=== PATIENT | female | born 1955 | race Caucasian/White ===

== ENCOUNTER 2016-05-17 12:07 | Emergency (ER) | payer OTHER ==
[~2016-05-17] VITALS: Ht 152.4 cm; Wt 54.4 kg
--- NOTE | 2016-05-17 12:26 | ED CARDIAC/CP/PALPITATIONS ---
History of Present Illness General Chief Complaint: Chest Pain Stated Complaint: "TO BE EVAL FOR CHEST PAIN" Source: patient, old records Exam Limitations: no limitations Allergies Coded Allergies: NO KNOWN ALLERGIES (09/14/10) Reconcile Medications Clonazepam 1 MG TABLET 1 TAB PO BIDP PRN ANXIETY (Reported) Fluticasone Propionate 50 MCG/ACTUATION SPRAY.SUSP 2 SPRAY NASB DAILY ALLERGIES (Reported) Methylphenidate HCl 20 MG TABLET 1 TAB PO BID UNKNOWN (Reported) Metoprolol Succinate 25 MG TAB 1 TAB PO QPM HEART (Reported) Montelukast Sodium 10 MG TABLET 1 TAB PO QPM ALLERGIES (Reported) Sitagliptin Phos/Metformin HCl (Janumet XR 50-1,000 MG Tablet) 50 MG-1,000 MG TBMP.24HR 1 TAB PO QPM DIABETES (Reported) Sitagliptin Phosphate (Januvia) 100 MG TABLET 1 TAB PO QPM DIABETES (Reported ) Triage Note: PT STATES SHE HAS BEEN HAVING CHEST PAIN ON AND OFF FOR THE PAST 3 DAYS. PT STATES SHE HAS TWO STENTS PLACED BY DR. LOUISE AT [place]. PT REPORTS FEELING PALPATATIONS. PT STATES SHE DID GET SOB AND FELT DIAPHORETIC DURING HER EPISODES. PT DENIES CHEST PAIN AT THIS TIME. Triage Nurses Notes Reviewed? yes Onset: Abrupt Duration: day(s): (3), constant Timing: recent history Quality/Severity: moderate, aching Location: substernal Radiation: no radiation Activities at Onset: none Nitro Today/Relief: 0.4 mg x 1 Aspirin Today: 81 mg x 1 Associated Symptoms: denies HPI: 61-year-old female history of coronary artery disease requiring stents 9 years ago presents emergency room sent in by her professional engineer for evaluation complaining of a dull aching chest pain described as a pressure nonradiating for the past 3 days associated with exertional dyspnea. She denies cough fever chills hemoptysis. Patient reports intermittent palpitations for which he took 1 Klonopin without improvement. No recent immobility or recent travel fever no chills no leg swelling. Her professional engineer is Dr. amador out of [place]. pt does not smoke. There are no modifying factors or associated symptoms otherwise (ABE VILLANUEVA,GADIEL) Vital Signs & Intake/Output Vital Signs & Intake/Output Vital Signs Date Time Temp Pulse Resp B/P Pulse O2 O2 Flow FiO2 Ox Delivery Rate 05/17 1755 96.7 80 16 130/67 97 Room Air 05/17 1544 97.1 76 16 140/60 99 Room Air 05/17 1418 96 05/17 1255 99 05/17 1224 96.3 82 16 145/77 98 Room Air Past History Travel History Traveled to [place] past 21 day No Medical History Any Pertinent Medical History? see below for history Cardiovascular: CAD, STENTS 1995 Pneumonia Vaccine: 11/22/03 Influenza Vaccine: 11/22/03 Surgical History Surgical History: non-contributory Psychosocial History Who do you live with Family Services at Home None What is your primary language Slovenian Tobacco Use: Quit >30 days ago ETOH Use: denies use Illicit Drug Use: denies illicit drug use Family History Hx Contributory? No (GADIEL SUN) Review of Systems Review of Systems Constitutional: Reports: see HPI. All Other Systems: Reviewed and Negative Comments Review of systems: See HPI, All other systems negative. Constitutional, no chills no fever, no malaise HEENT: No visual changes no sore throat no congestion Cardiovascular: chest pain , palpitation Skin, no rashes, no change in skin Respiratory:dyspnea no cough no sputum no hemoptysis GI: No nausea no vomiting, no diarrhea, no bloating/constipation : No dysuria No hematuria, Muscle skeletal: No joint pain, no back pain, no neck pain, Neurologic: No numbness , no headache Psych: No stress Heme/endocrine: No bruising no bleeding Immunology: No lymphadenopathy (GADIEL SUN) Physical Exam Physical Exam General Appearance: well developed/nourished, alert, awake Cardiovascular: regular rate/rhythm Comments: Well-developed well-nourished person in no acute distress HEENT: Normal EENT exam; PERRL, EOMI, HEAD is atraumatic. moist mucous membranes. Neck: Supple, normal range of motion Back: Nontender, no CVA tenderness. Full range of motion Cardiovascular: Regular rate and rhythms no murmurs rubs Respiratory: Chest nontender.There were no bony deformities, no asymmetry. No respiratory distress. Patient speaking in full complete sentences. Breath sounds clear to auscultation bilaterally: NO W/R/R Abdomen: Soft, nontender nondistended, no appreciable organomegaly. Normal bowel sounds. No rebound/guarding Extremity: No edema, full range of motion of extremities Neuro: Alert oriented x3, motor sensory normal, There were no obvious focal neurologic abnormalities. Skin: No appreciable rash on exposed skin, skin is warm and dry. Psych: Mood and affect is normal, memory and judgment is normal. Core Measures ACS in differential dx? Yes ASA ordered for poss ACS? pt took today Severe Sepsis Present: No Septic Shock Present: No (GADIEL SUN) Progress Differential Diagnosis: AMI, atrial fibrillation, CHF/pulm edema, costochondritis, hypovolemia, musculoskeletal pain, myocarditis, pericarditis, pneumonia, pneumothorax, PSVT, pulmonary embolism, PVCs/PACs, unstable angina Diagnostic Imaging: Viewed by Me: Radiology Read. Discussed w/RAD: Radiology Read. Radiology Impression: PATIENT: ELIZABETH CLARKE PRESENT AGE: 61 PATIENT ACCOUNT NO: [id number] : 53 LOCATION: [facility] ORDERING PHYSICIAN: GADIEL VILLANUEVA SERVICE DATE: 05/17/16-1235 EXAM TYPE: RAD - XRY- PORTABLE CHEST XRAY EXAMINATION: XR PORTABLE CHEST CLINICAL INFORMATION: Chest pain and dyspnea COMPARISON: 02/19/2014 TECHNIQUE: Portable AP view of the chest was obtained. FINDINGS: Cardiac leads overlie the chest. The lungs are well expanded. There is no focal consolidation, edema, or effusion. No pneumothorax. The cardiomediastinal silhouette is within normal limits. Aortic calcifications noted. No acute osseous abnormality. IMPRESSION: Clear lungs. DICTATED BY: SEGUN SNEED MD DATE/TIME DICTATED:05/17/161310 WORKERS' COMPENSATION HEARINGS OFFICER: TROY DATE/TIME TRANSCRIBED:05/17/161310 CONFIDENTIAL, DO NOT COPY WITHOUT APPROPRIATE AUTHORIZATION. <Electronically signed in Other Vendor System> SIGNED BY: SEGUN SNEED MD 05/17/16 1311 Initial ED EKG: NORMAL SINUS AT 70, NO ACUTE st SEGMENT CHANGES NORMAL AXIS Prior EKG: unchanged (12/2006) Repeat EKG: unchanged Rhythm Strip: normal sinus rhythm (70s) (GADIEL SUN) Plan of Care: Orders Procedure Date/time Status Regular Diet 05/17 D Active TROPONIN LEVEL 05/17 1710 Complete EKG 05/17 1710 Active TROPONIN LEVEL 05/17 1225 Complete PROTHROMBIN TIME 05/17 1225 Complete MAGNESIUM 05/17 1225 Complete COMPREHENSIVE METABOLIC PANEL 05/17 1225 Complete CBC WITHOUT DIFFERENTIAL 05/17 1225 Complete EKG 05/17 1209 Active Laboratory Tests 05/17/16 1705: Troponin I < 0.01 05/17/16 1317: Anion Gap 9, Estimated GFR > 60, BUN/Creatinine Ratio 24.0, Glucose 198 H, Calcium 9.8, Magnesium 1.9, Total Bilirubin 0.8, AST 18, ALT 30, Alkaline Phosphatase 81, Troponin I < 0.01, Total Protein 7.0, Albumin 4.3, Globulin 2.7, Albumin/Globulin Ratio 1.6, PT 12.4, INR 1.18 05/17/16 1241: CBC w Diff NO MAN DIFF REQ, RBC 4.92, MCV 86.6, MCH 28.7, RDW 13.9, MPV 9.0, Gran % 70.1, Lymphocytes % 21.9, Monocytes % 4.5, Eosinophils % 2.8, Basophils % 0.7, Absolute Granulocytes 6.0, Absolute Lymphocytes 1.9, Absolute Monocytes 0.4 , Absolute Eosinophils 0.2, Absolute Basophils 0.1, PUBS MCHC 33.2 Labs ordered old records reviewed patient medicated with nitroglycerin without improvement of her symptoms remains normal sinus on the monitor labs ordered case discussed with Dr. Gamez 05/17/2016 2:13:53 PM discussed the patient at length all her lab results need for repeat troponin and EKG at 1710, I discussed the case with her professional engineer Dr. amador who advised pt has a long history of anxiety compoenent, noncompliant with follow up in past, and feels comfortable with plan for 2 set- if negative pt can be discharged safely home with follow up with him Repeat evaluation patient is resting comfortable normal sinus on the monitor 05/17/2016 5:32:18 PM discussed with patient and her EKG the troponin I discussed with the patient at length all of their results. I had an extensive conversation regarding need for close follow up with their professional engineer as well as her primary care physician this week as well as return precautions. I answered all of their questions, they feel comfortable with the plan and follow- up care. I discussed the medications that they will receive with the patient. I gave them signs and symptoms that could indicate an adverse reaction. I have advised them to limit their activities until they can see how they respond to the medication. (GADIEL SUN) Departure Departure Time of Disposition: 1757 Disposition: HOME OR SELF CARE Condition: Stable Clinical Impression Primary Impression: Atypical chest pain Referrals: BLANCA VILLANUEVA,GRAZYNA THOMPSON (PCP/Family) Additional Instructions: Follow-up with your professional engineer as discussed tomorrow as well as your primary care physician. Return anytime sooner with any concerns. Departure Forms: Customer Survey General Discharge Information (GADIEL SUN) PA/SEAM STEAMER Co-Sign Statement Statement: ED Attending supervision documentation- [X] I saw and evaluated the patient. I have also reviewed all the pertinent lab results and diagnostic results. I agree with the findings and the plan of care as documented in the PA's/SEAM STEAMER's documentation. [] I have reviewed the ED Record and agree with the PA's/SEAM STEAMER's documentation. [] Additions or exceptions (if any) to the PAs/SEAM STEAMER's note and plan are summarized below: [] (NURA GUTIERREZ,RAMON Krause) Critical Care Note Critical Care Note Critical Care Time: non-applicable (GADIEL SUN)
[2016-05-17 12:48] LABS: ABSOLUTE BASOPHIL COUNT 0.1 /CUMM (0.0-0.2); ABSOLUTE EOSINOPHIL COUNT 0.2 /CUMM (0.0-0.7); ABSOLUTE LYMPH COUNT 1.9 /CUMM (1.2-3.4); ABSOLUTE MONOCYTE COUNT 0.4 /CUMM (0.10-0.60); BASOPHIL % 0.7 % (0.0-2.0); EOSINOPHIL % 2.8 % (0-5); GRANULOCYTE % 70.1 % (42.2-75.2); HEMATOCRIT 42.6 % (37-47); MEAN CORPUSCULAR HGB 28.7 PG (27.0-31.0); MEAN CORPUSCULAR HGB CONC 33.2 G/DL (33.0-37.0); MEAN CORPUSCULAR VOLUME 86.6 FL (81.0-99.0); PLATELET COUNT 274 /CUMM (130-400); RBC DISTRIBUTION WIDTH 13.9 % (11.5-14.5); RED BLOOD CELL CT 4.92 /CUMM (4.20-5.40); WHITE BLOOD CELL COUNT 8.6 /CUMM (4.8-10.8)
--- NOTE | 2016-05-17 13:15 | RADIOLOGY REPORT ---
EXAMINATION: XR PORTABLE CHEST CLINICAL INFORMATION: Chest pain and dyspnea COMPARISON: 02/19/2014 TECHNIQUE: Portable AP view of the chest was obtained. FINDINGS: Cardiac leads overlie the chest. The lungs are well expanded. There is no focal consolidation, edema, or effusion. No pneumothorax. The cardiomediastinal silhouette is within normal limits. Aortic calcifications noted. No acute osseous abnormality. IMPRESSION: Clear lungs.
[2016-05-17 13:36] LABS: PT 12.4 SEC (9.4-12.5)
[2016-05-17] MEDS ORDERED: METHYLPHENIDATE20 M4 PO (14:04)
[2016-05-17] MEDS ORDERED: MONTELUKAST SOD10 M1 PO (14:04)
[2016-05-17] MEDS ORDERED: JANUVIA100 M1 PO (14:05)
[2016-05-17] MEDS ORDERED: METOPROLOL SUCC25 M1 PO (14:05)
[2016-05-17] MEDS ORDERED: CLONAZEPAM1 M2 PO (14:05)
[2016-05-17] MEDS ORDERED: JANUMET XR 50-1 EAC1 PO (14:05)
[2016-05-17] MEDS ORDERED: FLUTICASONE PRO16 GM NASB (14:06)
[2016-05-17 17:55] VITALS: BP 130/67
== END 2016-05-17 17:55 ==
LOC: ERH 12:07
PROVIDERS: Physician Assistant Medical
DX: R07.89 Other chest pain (principal)
CPT/HCPCS: 1263; 93005; 93010; J3490

== ENCOUNTER 2016-08-13 12:58 | Inpatient (IN) | payer OTHER ==
[~2016-08-13] VITALS: Ht 152.4 cm; Wt 55.8 kg
[~2016-08-13 12:58] MED LIST: CLONAZEPAM1 M2 PO; FLUTICASONE PRO16 GM NASB; JANUMET XR 50-1 EAC1 PO; JANUVIA100 M1 PO; METHYLPHENIDATE20 M4 PO; METOPROLOL SUCC25 M1 PO; MONTELUKAST SOD10 M1 PO
--- NOTE | 2016-08-13 13:05 | NUR ---
PT TO ED FOR C/C OF HEART PALPITATIONS AND SOB SINCE LAST NIGHT. PT ALSO REPORTS DR. RADHA LEUNG "WANTS ME TO BE ADMITTED TO INPATIENT PSYCH". PT REPORTS +SI THOUGHTS. DENIES HI. +DEPRESSION. TAKEN TO EKG TAMERA.
--- NOTE | 2016-08-13 13:14 | NUR ---
TRIAGE NOTE ACKNOWLEDGED AND RN CARE ASSUMED PT BOUGHT TO ROOM # 8 FOR EVALUATION SECURITY CALLED PER PROTOCOL FOR WANDING. SPOUSE WILL ASSUME RESPONSIBILITY FOR ALL PT BELONGINGS AND VALUABLES PT WAITING TO BE EVALUATED.
--- NOTE | 2016-08-13 13:31 | NUR ---
PT EVALUATED BY DR KELLY
--- NOTE | 2016-08-13 13:36 | ED PSYCHIATRIC COMPLAINT ---
History of Present Illness General Chief Complaint: Palpitations Stated Complaint: SOB,PALP Source: patient, family Exam Limitations: no limitations Vital Signs & Intake/Output Vital Signs & Intake/Output Vital Signs Date Time Temp Pulse Resp B/P B/P Pulse O2 O2 Flow FiO2 Mean Ox Delivery Rate 08/13 2221 97.2 65 17 115/64 96 Room Air 08/13 2000 97.3 72 16 122/58 96 Room Air 08/13 1608 97.5 82 18 123/55 96 08/13 1421 98 Room Air 08/13 1304 98.0 120 15 145/82 98 Room Air Room Air Allergies Coded Allergies: NO KNOWN ALLERGIES (09/14/10) Reconcile Medications Amlodipine Besylate 2.5 MG TABLET 1 TAB PO DAILY HIGH BLOOD PRESSURE ( Reported) Aspirin (Aspirin*) 81 MG TAB.CHEW 1 TAB PO DAILY HEART HEALTH (Reported) Bismuth Subsalicylate (Kaopectate) 262 MG/15 ML ORAL.SUSP 30 ML PO DAILY NEEDED HEARTBURN (Reported) Clonazepam 1 MG TABLET 1 TAB PO Q6-PRN PRN ANXIETY (Reported) Clopidogrel Bisulfate (Clopidogrel) 75 MG TABLET 1 TAB PO DAILY HEART HEALTH (Reported) Docusate Sodium (Colace) 100 MG CAPSULE 1 CAP PO DAILY NEEDED CONSTIPATION (Reported) Fluticasone Propionate 50 MCG/ACTUATION SPRAY.SUSP 2 SPRAY NASB DAILY ALLERGIES (Reported) Loratadine (Claritin) 10 MG TABLET 1 TAB PO DAILY ALLERGIES (Reported) Metformin HCl 500 MG TABLET 2 TAB PO D DIABETES (Reported) Methylphenidate HCl 20 MG TABLET 1 TAB PO BID UNKNOWN (Reported) Metoprolol Succinate 25 MG TAB 0.5 TAB PO QPM HEART (Reported) Montelukast Sodium 10 MG TABLET 1 TAB PO QPM ALLERGIES (Reported) Nitroglycerin 0.4 MG TAB.SUBL 1 TAB SL AD CHEST PAIN (Reported) 1st sign of attack; may repeat every 5 minutes until relief; if pain persists after 3 tablets in 15 minutes, prompt medical att Ranolazine (Ranexa) 500 MG TAB.ER.12H 1 TAB PO BID CHEST PAIN (Reported) Rosuvastatin Calcium (Crestor) 40 MG TABLET 1 TAB PO DAILY HIGH CHOLESTROL ( Reported) Sitagliptin Phosphate (Januvia) 100 MG TABLET 1 TAB PO QPM DIABETES (Reported ) Vortioxetine Hydrobromide (Trintellix) 5 MG TABLET 1 TAB PO D DEPRESSION ( Reported) PT TO GO UP TO 10 MG ON Tuesday08/17/16 Triage Note: PT TO ED FOR C/C OF HEART PALPITATIONS AND SOB SINCE LAST NIGHT. PT ALSO REPORTS DR. RADHA LEUNG "WANTS ME TO BE ADMITTED TO INPATIENT PSYCH". PT REPORTS +SI THOUGHTS. DENIES HI. +DEPRESSION. TAKEN TO EKG ALCOVE. Triage Nurses Notes Reviewed? yes Onset: Abrupt Duration: 2 months Timing: recent history Severity: moderate, severe Associated Symptoms: anxiety, suicidal ideation HPI: 61 year old female with history of anxiety adn depression presents to the ER from home with her for chief complaint of anxiety. Sugey reports she was sent in for admision by her psychiatrist. She reports weight loss, difficulty sleeping, reports feeling unsafe at home. She states since her cardiac catheterization 2 months ago and stent placement that her anxiety has become much worse. Denies chest pain or shortness of breath but states that she did feel her heart racing. She reports 40 lb weight loss in the last 2 months. She reports feeling suicidal but states she does not have a plan. Past History Travel History Traveled to [place] past 21 day No Medical History Any Pertinent Medical History? see below for history Neurological: NONE EENT: NONE Cardiovascular: CAD, hypertension, hyperlipidemia, STENTS 1995 Respiratory: NONE Gastrointestinal: NONE Hepatic: NONE Renal: NONE Musculoskeletal: NONE Psychiatric: anxiety, depression Endocrine: NONE Blood Disorders: NONE Cancer(s): NONE HUMANITIES PROFESSOR/Reproductive: NONE Surgical History Surgical History: non-contributory Psychosocial History Who do you live with Family Services at Home None What is your primary language Occitan Tobacco Use: Never used ETOH Use: denies use Illicit Drug Use: denies illicit drug use Family History Hx Contributory? No Review of Systems Review of Systems Constitutional: Denies: chills, diaphoresis. EENTM: Reports: no symptoms. Respiratory: Denies: cough, short of breath, sputum production. Cardiovascular: Reports: palpitations. Denies: chest pain, peripheral edema, syncope. GI: Denies: abdominal pain. Genitourinary: Reports: no symptoms. Musculoskeletal: Reports: no symptoms. Skin: Reports: no symptoms. Neurological/Psychological: Reports: anxiety, depressed, emotional problems. Hematologic/Endocrine: Denies: bruising, bleeding. Immunologic/Allergic: Reports: no symptoms. All Other Systems: Reviewed and Negative Physical Exam Physical Exam General Appearance: well developed/nourished, alert, awake, anxious, mild distress Head: atraumatic Eyes: Bilateral: PERRL, EOMI. Ears, Nose, Throat: normal pharynx, normal ENT inspection, hearing grossly normal Neck: normal inspection, supple Respiratory: normal breath sounds Cardiovascular: regular rate/rhythm Gastrointestinal: soft, non-tender Extremities: normal range of motion Neurological/Psychiatric: awake, alert, anxious Appearance/Memory/Insight: appropriate appearance, impaired insight Behavoir/Eye Contact/Speech: uncooperative, increased rate of speech, good eye contact Thoughts/Hallucinations: no apparent hallucination Skin: intact, normal color, warm/dry SAD PERSONS SAD PERSONS Response Value Age <19 or >45 years? yes 1 Depression/Hopelessness? yes 2 Rational Thinking Loss? yes 2 Social Support? has support 0 Stated Future Intent? yes 2 Total 7 SAD PERSONS Done? yes Progress Differential Diagnosis: ANXIETY, DEPRESSION, SUICIDAL IDEATION Plan of Care: Orders Procedure Date/time Status Regular Diet 08/14 B Active Patient Data - inpatient psych 08/13 2041 Active Admit to inpatient psych 08/13 2041 Active Admit to inpatient psych 08/13 1834 Active Intake & Output 08/13 1421 Active URINE DRUGS OF ABUSE 08/13 1338 Complete THYROID STIMULATING HORMONE 08/13 1338 Complete TROPONIN LEVEL 08/13 1338 Complete FREE T4 08/13 1338 Complete ETHANOL 08/13 1338 Complete COMPREHENSIVE METABOLIC PANEL 08/13 1338 Complete CBC WITHOUT DIFFERENTIAL 08/13 1338 Complete ED CRISIS PSYCH CONSULT 08/13 1338 Active EKG 08/13 1300 Active Vital Signs 08/13 UNK Active Nursing Misc 08/13 UNK Active Activity/Ambulation 08/13 UNK Active Current Medications Sig/Genaro Start time Last Medication Dose Stop Time Status Admin Atorvastatin Calcium 40 MG 1700 08/14 1700 AC (Lipitor) Amlodipine Besylate 2.5 MG DAILY 08/14 1000 AC (Norvasc) Aspirin 81 MG DAILY 08/14 1000 AC (Aspirin) Clopidogrel Bisulfate 75 MG DAILY 08/14 1000 AC (Plavix) Fluticasone 2 SPRAY DAILY 08/14 1000 AC Propionate (Flonase) Loratadine 10 MG DAILY 08/14 1000 AC (Claritin) Metformin HCl 1,000 MG DAILY 08/14 1000 AC (Glucophage) Non-Formulary 5 UNIT DAILY 08/14 1000 UNVr Medication (NON FORMULARY) Methylphenidate HCl 20 MG 0800 & 1300 08/14 0800 AC (Ritalin) Metoprolol Tartrate 12.5 MG QPM 08/13 2199 AC (Lopressor) Montelukast Sodium 10 MG QPM 08/13 220 AC (Singulair) Ranolazine 500 MG BID 08/13 2199 AC (Ranexa) Sitagliptin Phosphate 100 MG QPM 08/13 2199 AC (JANUVIA) Nitroglycerin 0.4 MG Q5M PRN 08/13 2099 AC (Nitrostat) Bismuth Subsalicylate 30 ML DAILY NEEDED 08/13 2044 AC (Pepto Bismol Susp) Clonazepam 1 MG Q6-PRN PRN 08/13 2044 AC (Klonopin 1MG Tab) 08/21 2043 Docusate Sodium 100 MG DAILY NEEDED 08/13 2044 AC (Colace) Laboratory Tests 08/13/16 1415: Urine Opiates Screen < 100.00, Methadone Screen < 40, Barbiturate Screen < 60, Ur Phencyclidine Scrn < 6.00, Amphetamines Screen < 100, U Benzodiazepines Scrn 215 H, Urine Cocaine Screen < 50, Urine Cannabis Screen 9.40 08/13/16 1405: Anion Gap 12, Estimated GFR > 60, BUN/Creatinine Ratio 25.7 H, Glucose 231 H, Calcium 9.7, Total Bilirubin 1.0, AST 24, ALT 30, Alkaline Phosphatase 63, Troponin I < 0.01, Total Protein 7.0, Albumin 4.3, Globulin 2.7, Albumin/ Globulin Ratio 1.6, TSH 0.824, Free T4 0.97, CBC w Diff NO MAN DIFF REQ, RBC 4.47, MCV 84.7, MCH 28.8, RDW 13.6, MPV 8.3, Gran % 64.9, Lymphocytes % 25.5, Monocytes % 7.5, Eosinophils % 1.7, Basophils % 0.4, Absolute Granulocytes 3.3, Absolute Lymphocytes 1.3, Absolute Monocytes 0.4, Absolute Eosinophils 0.1, Absolute Basophils 0, PUBS MCHC 34.0, Serum Alcohol < 10.0 labs, ekg, utox ordered. odt zofran. ns, iv reglan ordered. 17:48 patient seen and evaluated by crisis - will be admitted to [facility]. (LETICIA GUTIERREZ,REMIGIO) Departure Departure Time of Disposition: 1747 Disposition: STILL A PATIENT Condition: Stable Clinical Impression Primary Impression: Bipolar disorder, unspecified Referrals: GRAZYNA DENNIS (PCP/Family) Departure Forms: Customer Survey General Discharge Information Psych Admission Note Psychiatric Admission: I have seen and evaluated ELIZABETH CLARKE. I have also reviewed all the pertinent lab results and diagnostic results. ELIZABETH CLARKE will be admitted to our inpatient Psychiatric unit for treatment and care.
--- NOTE | 2016-08-13 14:06 | NUR ---
BLDS DRAWN AND SENT
[2016-08-13 14:12] LABS: ABSOLUTE BASOPHIL COUNT 0 /CUMM (0.0-0.2); ABSOLUTE EOSINOPHIL COUNT 0.1 /CUMM (0.0-0.7); ABSOLUTE GRANULOCYTE CT 3.3 /CUMM (1.4-6.5); ABSOLUTE LYMPH COUNT 1.3 /CUMM (1.2-3.4); ABSOLUTE MONOCYTE COUNT 0.4 /CUMM (0.10-0.60); BASOPHIL % 0.4 % (0.0-2.0); EOSINOPHIL % 1.7 % (0-5); GRANULOCYTE % 64.9 % (42.2-75.2); HEMATOCRIT 37.8 % (37-47); MEAN CORPUSCULAR HGB 28.8 PG (27.0-31.0); MEAN CORPUSCULAR VOLUME 84.7 FL (81.0-99.0); MEAN PLATELET VOLUME 8.3 FL (7.4-10.4); PLATELET COUNT 260 /CUMM (130-400); RBC DISTRIBUTION WIDTH 13.6 % (11.5-14.5); RED BLOOD CELL CT 4.47 /CUMM (4.20-5.40)
--- NOTE | 2016-08-13 14:20 | NUR ---
PT C/O NAUSEA. PT MEDICATED WITH 4 MG ZOFRAN ODT FOR NAUSEA.
[2016-08-13] MEDS ORDERED: RANEXA500 M1 PO (15:24)
[2016-08-13] MEDS ORDERED: CRESTOR40 M2 PO (15:24)
[2016-08-13] MEDS ORDERED: AMLODIPINE BES2.5 M1 PO (15:25)
[2016-08-13] MEDS ORDERED: ASPIRIN81 M4 PO (15:26)
[2016-08-13] MEDS ORDERED: KAOPECTATE262 MG/11 PO (15:29)
[2016-08-13] MEDS ORDERED: CLOPIDOGREL75 M1 PO (15:30)
[2016-08-13] MEDS ORDERED: COLACE100 M1 PO (15:31)
[2016-08-13] MEDS ORDERED: CLARITIN10 M1 PO (15:32)
[2016-08-13] MEDS ORDERED: METFORMIN HCL500 M3 PO (15:34)
[2016-08-13] MEDS ORDERED: NITROGLYCERIN0.4 M1 SL (15:36)
[2016-08-13] MEDS ORDERED: TRINTELLIX5 MG PO (15:41)
--- NOTE | 2016-08-13 17:32 | NUR ---
PT CONTINUES TO REPORT NAUSEA. 22 G PARDEEP PLACED IN LW IV OF N/S STARTED W/O X ONE LITER PT MEDICATED WITH 10 MG COMPAZINE IV IN 50 ML N/S TO INFUSE OVER 30 MINUTES.
--- NOTE | 2016-08-13 17:45 | ED PSYCH CRISIS CONSULTATION ---
Crisis Consult Basic Assessment Date of Consult: 08/13/16 Responsible Person/Accompanied By: - Adelfo Marquez [phone]. Insurance Authorization: Insurance #1: Insurance name: [employer] Phone number: Policy number: [id number] Group number: Authorization number: ED Provider: Patient's ED Provider: LETICIA GUTIERREZ,REMIGIO Primary Care Physician: Patient's PCP: GRAZYNA DENNIS PCP's Current Psychiatrist: Dr. Gambino Chief Complaint: Psychiatric Related Complaint Patient's Quote: " I don't feel safe at home." Present Illness: The patient is a 61 year old, , female, presenting to the ED with worsening depression and suicidal ideations. The patient presents with depressed mood and congruent affect. The patient reports that she has struggled with depression, for many years and has been seeing her psychiatrist (Dr. Gambino ), for the past 10 years. She does report one prior hospitalization, on [facility] in 2004. She states that she has anxiety and Bipolar Disorder and notes that she was managing well, until about 2 months ago, when she required two cardiac stents. She notes that since having the cardiac issues her depression has been increasing. She has been feeling helpless, hopeless, depressed, anxious, with decreased energy, decreased motivation, decreased appetite (reports loss of 40lbs), and sleep disturbances. She states that her medical issues are her primary stressor and that she is very distressed by having issues with her heart. She reports that she recently started having suicidal ideations, with no current plan. She states that she has never had suicidal thoughts before and has never attempted suicide. She denies any current or history of AH / VH / HI / substance abuse. She lives with her and her mother and has one child and 2 grandchildren. 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 She is motivated to get help and would like to be admitted to [facility]. Her Adelfo Marquez ([phone]), was present and confirmed all of the above. He reports that her depression has been getting worse and he supports her decision to be admitted to the hospital at this time. Patient's Address: [address] [place] [address] Other Who Do You Live With? Family ( and mother) Family/Informants Interviewed: - Adelfo Marquez [phone] Allergies - Coded Allergies: NO KNOWN ALLERGIES (09/14/10) Current Medications - Scheduled Medications Amlodipine Besylate 2.5 MG TABLET 1 TAB PO DAILY HIGH BLOOD PRESSURE #30 ( Reported) Entered as Reported by JAZMYN POWER on 08/13/16 1525 Aspirin (Aspirin*) 81 MG TAB.CHEW 1 TAB PO DAILY HEART HEALTH (Reported) Entered as Reported by JAZMYN POWER on 08/13/16 1526 Bismuth Subsalicylate (Kaopectate) 262 MG/15 ML ORAL.SUSP 30 ML PO DAILY NEEDED HEARTBURN (Reported) Entered as Reported by JAZMYN POWER on 08/13/16 1529 Clopidogrel Bisulfate (Clopidogrel) 75 MG TABLET 1 TAB PO DAILY HEART HEALTH # 30 (Reported) Entered as Reported by JAZMYN POWER on 08/13/16 1530 Docusate Sodium (Colace) 100 MG CAPSULE 1 CAP PO DAILY NEEDED CONSTIPATION (Reported) Entered as Reported by JAZMYN POWER on 08/13/16 1531 Fluticasone Propionate 50 MCG/ACTUATION SPRAY.SUSP 2 SPRAY NASB DAILY ALLERGIES #16 (Reported) Entered as Reported by DASH WINTER on 05/17/16 1406 Loratadine (Claritin) 10 MG TABLET 1 TAB PO DAILY ALLERGIES (Reported) Entered as Reported by JAZMYN POWER on 08/13/16 1532 Metformin HCl 500 MG TABLET 2 TAB PO D DIABETES (Reported) Entered as Reported by JAZMYN POWER on 08/13/16 1534 Methylphenidate HCl 20 MG TABLET 1 TAB PO BID UNKNOWN #90 (Reported) Entered as Reported by DASH WINTER on 05/17/16 1404 Metoprolol Succinate 25 MG TAB 0.5 TAB PO QPM HEART #90 (Reported) Entered as Reported by ADSH WINTER on 05/17/16 1405 Montelukast Sodium 10 MG TABLET 1 TAB PO QPM ALLERGIES #30 (Reported) Entered as Reported by DASH WINTER on 05/17/16 1404 Nitroglycerin 0.4 MG TAB.SUBL 1 TAB SL AD CHEST PAIN (Reported) Entered as Reported by JAZMYN POWER on 08/13/16 1536 Ranolazine (Ranexa) 500 MG TAB.ER.12H 1 TAB PO BID CHEST PAIN #60 (Reported) Entered as Reported by JAZMYN POWER on 08/13/16 1524 Rosuvastatin Calcium (Crestor) 40 MG TABLET 1 TAB PO DAILY HIGH CHOLESTROL #30 (Reported) Entered as Reported by JAZMYN POWER on 08/13/16 1524 Sitagliptin Phosphate (Januvia) 100 MG TABLET 1 TAB PO QPM DIABETES #30 ( Reported) Entered as Reported by DASH WINTER on 05/17/16 1405 Vortioxetine Hydrobromide (Trintellix) 5 MG TABLET 1 TAB PO D DEPRESSION ( Reported) Entered as Reported by JAZMYN POWER on 08/13/16 1541 Scheduled PRN Medications Clonazepam 1 MG TABLET 1 TAB PO Q6-PRN PRN ANXIETY #360 (Reported) Entered as Reported by DASH WINTER on 05/17/16 1405 Laboratory Results: Laboratory Tests 08/13/16 1415: Urine Opiates Screen < 100.00, Methadone Screen < 40, Barbiturate Screen < 60, Ur Phencyclidine Scrn < 6.00, Amphetamines Screen < 100, U Benzodiazepines Scrn 215 H, Urine Cocaine Screen < 50, Urine Cannabis Screen 9.40 08/13/16 1405: Anion Gap 12, Estimated GFR > 60, BUN/Creatinine Ratio 25.7 H, Glucose 231 H, Calcium 9.7, Total Bilirubin 1.0, AST 24, ALT 30, Alkaline Phosphatase 63, Troponin I < 0.01, Total Protein 7.0, Albumin 4.3, Globulin 2.7, Albumin/ Globulin Ratio 1.6, TSH 0.824, Free T4 0.97, CBC w Diff NO MAN DIFF REQ, RBC 4.47, MCV 84.7, MCH 28.8, RDW 13.6, MPV 8.3, Gran % 64.9, Lymphocytes % 25.5, Monocytes % 7.5, Eosinophils % 1.7, Basophils % 0.4, Absolute Granulocytes 3.3, Absolute Lymphocytes 1.3, Absolute Monocytes 0.4, Absolute Eosinophils 0.1, Absolute Basophils 0, PUBS MCHC 34.0, Serum Alcohol < 10.0 Past History Past Medical History Neurological: NONE EENT: NONE Cardiovascular: CAD, hypertension, hyperlipidemia, STENTS 1995 Respiratory: NONE Gastrointestinal: NONE Hepatic: NONE Renal: NONE Musculoskeletal: NONE Psychiatric: anxiety, depression Endocrine: NONE Blood Disorders: NONE Cancer(s): NONE [place] ATTORNEY/Reproductive: NONE Past Surgical History Surgical History: non-contributory Psychosocial History Strengths/Capabilities: The patient has a supportive and stable living enviornement. Physical Limitations (Interventions): None noted Psychiatric Treatment History Psych Treatment Psychiatric Treatment Yes Inpatient Treatment Yes Outpatient Treatment Yes Location of Treatment [facility] and Dr. Gambino Reason for Treatment Bipolar Disorder and Anxiety Dates of Treatment Current with Dr. Gambino, [facility] 2004 Response to Treatment The patient notes that she has been managing well in OP, until she starting having cardiac issues. Diagnosis by History: Bipolar Disorder and Anxiety Substance Use/Abuse History Drug Use/Abuse Substances Used/Abused No First Use N/A Last Used N/A How much used/taken N/A How often N/A For how long N/A Route of use N/A Substance Abuse Treatment Substance Abuse Treatment Past Substance Abuse [place] No Inpatient Treatment No Outpatient Treatment No Location of Treatment N/A Reason for Treatment N/A Dates of Treatment N/A Response to Treatment N/A Comments: N/A Current Mental Status Mental Status Orientation: Person, Place, Situation Affect: Depressed Speech: WNL Neuro-vegetative: Appetite Decreased, Energy Decreased, Helpless, Sleep Disturbance, Feelin hopeless Appearance Appearance- Dress/Hygiene: The patient was sittin in bed, neat, clean and wello groomed, with short dark hair. Behaviors Thought Process: WNL Thought Content: WNL Memory: WNL Insight: WNL SI/HI Risk Assessment Past Suicidal Ideation/Attempts No Current Suicidal Ideation/Att Yes Past Homicidal Ideation/Att: No Current Homicidal Ideation/Attempts No Degree of Intent: States Intent, The patient states that she has started having suicidal thoughts, for the first time in her life and believes that she will act on her thoughts. She does not have a plan at this time. Danger To: Self Gravely Disabled: N/A Risk Factors: high anxiety/distress, SA/MH hospitalized, limited support Lethality Ratin PTSD Checklist PTSD Done? patient declined (Denies trauma or abuse hx) ED Management Sitter: Yes Restraints: No DSM5/PS Stressors/Medical Prob Diagnosis' (DSM 5, Stressors, Medical): F31.9 Unspecified Bipolar Disorder F41.9 Unspecified Anxiety Disorder Medical: Recent cardiac stents placed Stressors: Medical issues Current GAF: 25 Comments: N/A Departure Disposition Psych Medical Clearance Date: 08/13/16 Medically Cleared at: 1505 Time Started: 1600 Time Ended: 1700 Psychiatrist Consulted: Dr. Juan Date Disposition Established: 08/13/16 Time Disposition Established: 1729 Plan for Disposition - Modality: Inpatient Psychiatry Facility: [facility] Contact: N/A Telephone: N/A Rationale for Disposition: The patient presents as depressed, anxious, feeling helpless, feeling hopeless, and has had new onset of suicidal thoughts. The patient states her appetite has been decreased, with a 40lb weight loss. She has also been having sleep disturbances, low energy and "feeling weak". She is motivated for treatment and would like to be admitted to the inpatient psychiatric unit. Case discussed wtih Dr. Juan and she finds the patient to be a risk to herself at this time and will admit her to [facility]. Type of IP Admission: Voluntary Additional Instructions: N/A Referrals BLANCA VILLANUEVA,GRAZYNA THOMPSON (PCP/Family)
--- NOTE | 2016-08-13 18:05 | IP CRISIS DIAG ASSESS PSYCH ---
See Addendum Diagnostic Assessment Basic Assessment Insurance Authorization: Insurance #1: Insurance name: [employer] H[employer] Phone number: Policy number: [id number] Group number: Authorization number: Primary Care Physician: Patient's PCP: GRAZYNA DENNIS PCP's Patient's Quote: " I don't feel safe at home." Present Illness: The patient is a 61 year old, , female, presenting to the ED with worsening depression and suicidal ideations. The patient presents with depressed mood and congruent affect. The patient reports that she has struggled with depression, for many years and has been seeing her psychiatrist (Dr. Gambino ), for the past 10 years. She does report one prior hospitalization, on [facility] in 2004. She states that she has anxiety and Bipolar Disorder and notes that she was managing well, until about 2 months ago, when she required two cardiac stents. She notes that since having the cardiac issues her depression has been increasing. She has been feeling helpless, hopeless, depressed, anxious, with decreased energy, decreased motivation, decreased appetite (reports loss of 40lbs), and sleep disturbances. She states that her medical issues are her primary stressor and that she is very distressed by having issues with her heart. She reports that she recently started having suicidal ideations, with no current plan. She states that she has never had suicidal thoughts before and has never attempted suicide. She denies any current or history of AH / VH / HI / substance abuse. She lives with her and her mother and has one child and 2 grandchildren. 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 She is motivated to get help and would like to be admitted to [facility]. Her Adelfo Marquez ([phone]), was present and confirmed all of the above. He reports that her depression has been getting worse and he supports her decision to be admitted to the hospital at this time. Patient's Address: [address] [place] [address] Other Who Do You Live With? Family ( and mother) Feel Safe Where You Live? Yes (besides suicidal thoughts) Feel Safe in Your Relationship Yes Marital Status: Do You Have Children? Yes Ages? 40 years old Primary Language? Khmer Family/Informants Interviewed: - Adelfo Marquez [phone] Allergies - Coded Allergies: NO KNOWN ALLERGIES (09/14/10) Current Medications - Scheduled Medications Amlodipine Besylate 2.5 MG TABLET 1 TAB PO DAILY HIGH BLOOD PRESSURE #30 ( Reported) Entered as Reported by JAZMYN POWER on 08/13/16 1525 Aspirin (Aspirin*) 81 MG TAB.CHEW 1 TAB PO DAILY HEART HEALTH (Reported) Entered as Reported by JAZMYN POWER on 08/13/16 1526 Bismuth Subsalicylate (Kaopectate) 262 MG/15 ML ORAL.SUSP 30 ML PO DAILY NEEDED HEARTBURN (Reported) Entered as Reported by JAZMYN POWER on 08/13/16 1529 Clopidogrel Bisulfate (Clopidogrel) 75 MG TABLET 1 TAB PO DAILY HEART HEALTH # 30 (Reported) Entered as Reported by JAZMYN POWER on 08/13/16 1530 Docusate Sodium (Colace) 100 MG CAPSULE 1 CAP PO DAILY NEEDED CONSTIPATION (Reported) Entered as Reported by JAZMYN POWER on 08/13/16 1531 Fluticasone Propionate 50 MCG/ACTUATION SPRAY.SUSP 2 SPRAY NASB DAILY ALLERGIES #16 (Reported) Entered as Reported by DASH WINTER on 05/17/16 1406 Loratadine (Claritin) 10 MG TABLET 1 TAB PO DAILY ALLERGIES (Reported) Entered as Reported by JAZMYN POWER on 08/13/16 1532 Metformin HCl 500 MG TABLET 2 TAB PO D DIABETES (Reported) Entered as Reported by JAZMYN POWER on 08/13/16 1534 Methylphenidate HCl 20 MG TABLET 1 TAB PO BID UNKNOWN #90 (Reported) Entered as Reported by DASH WINTER on 05/17/16 1404 Metoprolol Succinate 25 MG TAB 0.5 TAB PO QPM HEART #90 (Reported) Entered as Reported by DASH WINTER on 05/17/16 1405 Montelukast Sodium 10 MG TABLET 1 TAB PO QPM ALLERGIES #30 (Reported) Entered as Reported by DASH WINTER on 05/17/16 1404 Nitroglycerin 0.4 MG TAB.SUBL 1 TAB SL AD CHEST PAIN (Reported) Entered as Reported by JAZMYN POWER on 08/13/16 1536 Ranolazine (Ranexa) 500 MG TAB.ER.12H 1 TAB PO BID CHEST PAIN #60 (Reported) Entered as Reported by JAZMYN POWER on 08/13/16 1524 Rosuvastatin Calcium (Crestor) 40 MG TABLET 1 TAB PO DAILY HIGH CHOLESTROL #30 (Reported) Entered as Reported by JAZMYN POWER on 08/13/16 1524 Sitagliptin Phosphate (Januvia) 100 MG TABLET 1 TAB PO QPM DIABETES #30 ( Reported) Entered as Reported by DASH WINTER on 05/17/16 1405 Vortioxetine Hydrobromide (Trintellix) 5 MG TABLET 1 TAB PO D DEPRESSION ( Reported) Entered as Reported by JAZMYN POWER on 08/13/16 1541 Scheduled PRN Medications Clonazepam 1 MG TABLET 1 TAB PO Q6-PRN PRN ANXIETY #360 (Reported) Entered as Reported by DSAH WINTER on 05/17/16 1405 Consequences of Psych Med Use: She states that the new medication that she is on, Trinellix has been making her feel naseous. Comment: N/A Lab Results: Laboratory Tests 08/13/16 1415: Urine Opiates Screen < 100.00, Methadone Screen < 40, Barbiturate Screen < 60, Ur Phencyclidine Scrn < 6.00, Amphetamines Screen < 100, U Benzodiazepines Scrn 215 H, Urine Cocaine Screen < 50, Urine Cannabis Screen 9.40 08/13/16 1405: Anion Gap 12, Estimated GFR > 60, BUN/Creatinine Ratio 25.7 H, Glucose 231 H, Calcium 9.7, Total Bilirubin 1.0, AST 24, ALT 30, Alkaline Phosphatase 63, Troponin I < 0.01, Total Protein 7.0, Albumin 4.3, Globulin 2.7, Albumin/ Globulin Ratio 1.6, TSH 0.824, Free T4 0.97, CBC w Diff NO MAN DIFF REQ, RBC 4.47, MCV 84.7, MCH 28.8, RDW 13.6, MPV 8.3, Gran % 64.9, Lymphocytes % 25.5, Monocytes % 7.5, Eosinophils % 1.7, Basophils % 0.4, Absolute Granulocytes 3.3, Absolute Lymphocytes 1.3, Absolute Monocytes 0.4, Absolute Eosinophils 0.1, Absolute Basophils 0, PUBS MCHC 34.0, Serum Alcohol < 10.0 Toxicology Screen Completed? Yes Results: positive (Benzodiazepines) Symptoms of Use: N/A Past History Past Surgical History Surgical History CARDIAC STENTS Abuse/Trauma History Trauma History/Current Trauma: Denies Legal History Current Legal Status: none Have you ever been arrested? No Number of Arrests: [address] Dates: N/A Brand Mgr N/A Psychosocial History Strengths/Capabilities: The patient has a supportive and stable living enviornement. Physical Limitations (Interventions): None noted Psychiatric Treatment History Psych Treatment Psychiatric Treatment Yes Inpatient Treatment Yes Outpatient Treatment Yes Location of Treatment [facility] and Dr. Gambino Reason for Treatment Bipolar Disorder and Anxiety Dates of Treatment Current with Dr. Gambino, [facility] 2004 Response to Treatment The patient notes that she has been managing well in OP, until she starting having cardiac issues. Diagnosis by History: Bipolar Disorder and Anxiety Risk Factors: high anxiety/distress, SA/MH hospitalized, limited support Substance Use/Abuse History Drug Use/Abuse minimum 12mo Hx Substances Used/Abused No First Use N/A Last Used N/A How much used/taken N/A How often N/A For how long N/A Route of use N/A Substance Abuse Treatment Substance Abuse Treatment Past Substance Abuse [place] No Inpatient Treatment No Outpatient Treatment No Location of Treatment N/A Reason for Treatment N/A Dates of Treatment N/A Response to Treatment N/A Comments: N/A Sexual History Sexual Concerns: None noted Education History Highest Level of Education: high school/GED Preferred Learning Style: visual Current Mental Status Mental Status Orientation: Person, Place, Situation Affect: Depressed Speech: WNL Neuro-vegetative: Appetite Decreased, Energy Decreased, Helpless, Sleep Disturbance, Feelin hopeless Appearance Appearance- Dress/Hygiene: The patient was sittin in bed, neat, clean and wello groomed, with short dark hair. Behaviors Thought Process: WNL Thought Content: WNL Memory: WNL Insight: WNL SI/HI Risk Assessment - Minimum 6mo History- Past Suicidal Ideation/Attempts No Current Suicidal Ideation/Att Yes Past Homicidal Ideation/Att: No Current Homicidal Ideation/Attempts No Degree of Intent: States Intent, The patient states that she has started having suicidal thoughts, for the first time in her life and believes that she will act on her thoughts. She does not have a plan at this time. Danger To: Self Gravely Disabled: N/A Risk Factors: high anxiety/distress, SA/MH hospitalized, limited support Lethality Ratin Needs/Init TX Plan/Goals: Admit to the inpatient unit for safety and symptom stabilization. Attend group, family and individual treatment. Work with provider on medication evaluation. Work with treatment team on transition back to care in the community. AUDIT-C Questionnaire: AUDIT-C Questionnaire: Response Value ETOH use in the past year Never 0 # drinks typical/day Doesn't Drink 0 6 or > drinks per occasion Never 0 Total 0 DSM5/PS Stressors/Medical Prob Diagnosis' (DSM 5, Stressors, Medical): F31.9 Unspecified Bipolar Disorder F41.9 Unspecified Anxiety Disorder Medical: Recent cardiac stents placed Stressors: Medical issues Current GAF: 25 Comments: N/A
--- NOTE | 2016-08-13 18:06 | SOCIAL WORKER SOCIAL HX PSYCH ---
Social History Basic Assessment Insurance Authorization: Insurance #1: Insurance name: [employer] Phone number: Policy number: [id number] Group number: Authorization number: Curr Source of Income/Entitlements: Chcf income Primary Care Physician: Patient's PCP: GRAZYNA DENNIS PCP's Present Problem: The patient is a 61 year old, , female, presenting to the ED with worsening depression and suicidal ideations. The patient presents with depressed mood and congruent affect. The patient reports that she has struggled with depression, for many years and has been seeing her psychiatrist (Dr. Gambino ), for the past 10 years. She does report one prior hospitalization, on [facility] in 2004. She states that she has anxiety and Bipolar Disorder and notes that she was managing well, until about 2 months ago, when she required two cardiac stents. She notes that since having the cardiac issues her depression has been increasing. She has been feeling helpless, hopeless, depressed, anxious, with decreased energy, decreased motivation, decreased appetite (reports loss of 40lbs), and sleep disturbances. She states that her medical issues are her primary stressor and that she is very distressed by having issues with her heart. She reports that she recently started having suicidal ideations, with no current plan. She states that she has never had suicidal thoughts before and has never attempted suicide. She denies any current or history of AH / VH / HI / substance abuse. She lives with her and her mother and has one child and 2 grandchildren. 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 She is motivated to get help and would like to be admitted to [facility]. Her Adelfo Marquez ([phone]), was present and confirmed all of the above. He reports that her depression has been getting worse and he supports her decision to be admitted to the hospital at this time. Primary Language? Khmer Living Situation Rents or Owns Home? owns Residential Care/Treatment Fac N/A Feel Safe Where You Are Living Yes (Besides suicidal ideations) Feel Safe in Relationships? Yes Comments: N/A Allergies - Coded Allergies: NO KNOWN ALLERGIES (09/14/10) Current Medications - Scheduled Medications Amlodipine Besylate 2.5 MG TABLET 1 TAB PO DAILY HIGH BLOOD PRESSURE #30 ( Reported) Entered as Reported by JAZMYN POWER on 08/13/16 1525 Aspirin (Aspirin*) 81 MG TAB.CHEW 1 TAB PO DAILY HEART HEALTH (Reported) Entered as Reported by JAZMYN POWER on 08/13/16 1526 Bismuth Subsalicylate (Kaopectate) 262 MG/15 ML ORAL.SUSP 30 ML PO DAILY NEEDED HEARTBURN (Reported) Entered as Reported by JAZMYN POWER on 08/13/16 1529 Clopidogrel Bisulfate (Clopidogrel) 75 MG TABLET 1 TAB PO DAILY HEART HEALTH # 30 (Reported) Entered as Reported by JAZMYN POWER on 08/13/16 1530 Docusate Sodium (Colace) 100 MG CAPSULE 1 CAP PO DAILY NEEDED CONSTIPATION (Reported) Entered as Reported by JAZMYN POWER on 08/13/16 1531 Fluticasone Propionate 50 MCG/ACTUATION SPRAY.SUSP 2 SPRAY NASB DAILY ALLERGIES #16 (Reported) Entered as Reported by DASH WINTER on 05/17/16 1406 Loratadine (Claritin) 10 MG TABLET 1 TAB PO DAILY ALLERGIES (Reported) Entered as Reported by JAZMYN POWER on 08/13/16 1532 Metformin HCl 500 MG TABLET 2 TAB PO D DIABETES (Reported) Entered as Reported by JAZMYN POWER on 08/13/16 1534 Methylphenidate HCl 20 MG TABLET 1 TAB PO BID UNKNOWN #90 (Reported) Entered as Reported by DASH WINTER on 05/17/16 1404 Metoprolol Succinate 25 MG TAB 0.5 TAB PO QPM HEART #90 (Reported) Entered as Reported by DASH WINTER on 05/17/16 1405 Montelukast Sodium 10 MG TABLET 1 TAB PO QPM ALLERGIES #30 (Reported) Entered as Reported by DASH WINTER on 05/17/16 1404 Nitroglycerin 0.4 MG TAB.SUBL 1 TAB SL AD CHEST PAIN (Reported) Entered as Reported by JAZMYN POWER on 08/13/16 1536 Ranolazine (Ranexa) 500 MG TAB.ER.12H 1 TAB PO BID CHEST PAIN #60 (Reported) Entered as Reported by JAZMYN POWER on 08/13/16 1524 Rosuvastatin Calcium (Crestor) 40 MG TABLET 1 TAB PO DAILY HIGH CHOLESTROL #30 (Reported) Entered as Reported by JAZMYN POWER on 08/13/16 1524 Sitagliptin Phosphate (Januvia) 100 MG TABLET 1 TAB PO QPM DIABETES #30 ( Reported) Entered as Reported by DASH WINTER on 05/17/16 1405 Vortioxetine Hydrobromide (Trintellix) 5 MG TABLET 1 TAB PO D DEPRESSION ( Reported) Entered as Reported by JAZMYN POWER on 08/13/16 1541 Scheduled PRN Medications Clonazepam 1 MG TABLET 1 TAB PO Q6-PRN PRN ANXIETY #360 (Reported) Entered as Reported by DASH WINTER on 05/17/16 1405 Consequences of Psych Med Use: N/A Comments: N/A Past History Past Medical History Neurological: NONE EENT: NONE Cardiovascular: CAD, hypertension, hyperlipidemia, STENTS 1996 Respiratory: NONE Gastrointestinal: NONE Hepatic: NONE Renal: NONE Musculoskeletal: NONE Psychiatric: anxiety, depression Endocrine: NONE Blood Disorders: NONE Cancer(s): NONE MOLD HOLDER/Reproductive: NONE Past Surgical History Surgical History: non-contributory /Family History Place/Country of Origin: [place], [place] Childhood Family Constellation: Mother and father Primary Childhood Caretakers: father, mother Family Life During Childhood: "Good" DCF Involvement? No Mother's Age (Current/): 0 (Unclear) Relationship w/Mother: The patient reports that her mother resides with her and that they have a good realtionship. Father's Age (Current/): 0 ( 7 years ago) Relationship w/Father: She states that she had a good relationship with her father before he . Any Sibling(s)? No Relationship w/Friends: She states that she does have some friends, however she does not talk about her mental health issues with them. Family Psych/Sub Abuse/Add Hx: She reports her grandmother had Alzheimers Other Comments: N/A Abuse/Trauma History Trauma History/Current Trauma: Denies History of Trauma/Abuse Treatment? No Abuse/Trauma Treatment: N/A Legal History Legal Guardian/Address/Phone: Self Current Legal Status: none Pending Court Dates: N/A Have you ever been arrested No Number of Arrests: 0 Hx of Juvenile Legal Charges? No Hx of Adult Legal Charges? No Civil Proceedings: N/A Domestic Relations Court: N/A Child Protective Serv Involvmnt N/A Manager Acute N/A Psychosocial History Primary Support System: Strengths/Capabilities: The patient has a supportive and stable living enviornement. Weaknesses: The patient recently started to have cardiac issues, which required 2 stents. Physical Limitations (Interventions): None noted Last Physical: unknown History of Seizures? No History of Blackouts? No ADL Limitations: None noted [place]/Social/Peer Relations The patient reports that she does have friends, however does not talk about her mental health issues with them. Meaningful Activities: None noted Current Sabianist Affiliation: Manny Is Spirituality Important to You? "yes" Cultural/Ethnic Issues: None noted Are There Developmental Issues? No Psychiatric Treatment History Psych Treatment Inpatient Treatment Yes Outpatient Treatment Yes Location of Treatment [facility] and Dr. Gambino Reason for Treatment Bipolar Disorder and Anxiety Dates of Treatment Current with Dr. Gambino, [facility] 2004 Response to Treatment The patient notes that she has been managing well in OP, until she starting having cardiac issues. 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 Yes (N/A) Explain: The patient denies any current or history of drug or alcohol abuse. Relapse History? No Explain: N/A Have You Ever Attended AA? No Do You Attend AA Currently? No Do You Have a Sponsor? No Other Community Resources Used: None noted Symptoms of Use: N/A Substance Abuse Treatment Substance Abuse Treatment Inpatient Treatment No Outpatient Treatment No Location of Treatment N/A Reason for Treatment N/A Dates of Treatment N/A Response to Treatment N/A Comments: N/A Sexual History Sexual Concerns: None noted Education History Highest Level of Education: high school/GED Highest Grade Completed: graduated high school Vocational Year Completed: N/A Number of College Years: 0 College Degree/Major: N/A Other Degree(s): N/A Preferred Learning Style: visual HX of Learning Difficulties: None reported Barriers to Learning: None reported Special Communication Needs: None reported Employment History Employment Retired Not in Labor Force: Retired 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 No. of Jobs in Last 5 Years: 0 Attendance: N/A Comments: N/A History Have You Been in The ? No If Yes, Explain: N/A Type of Discharge: N/A Date of Discharge: N/A Current Mental Status Mental Status Orientation: Person, Place, Situation Affect: Depressed Speech: WNL Neuro-vegetative: Appetite Decreased, Energy Decreased, Helpless, Sleep Disturbance, Feelin hopeless Appearance Appearance- Dress/Hygiene: The patient was sittin in bed, neat, clean and well groomed, with short dark hair. Behaviors Thought Process: WNL Thought Content: WNL Memory: WNL Insight: WNL SI/HI Risk Assessment Past Suicidal Ideation/Attempts No Current Suicidal Ideation/Att Yes Past Homicidal Ideation/Att: No Current Homicidal Ideation/Attempts No Degree of Intent: States Intent, The patient states that she has started having suicidal thoughts, for the first time in her life and believes that she will act on her thoughts. She does not have a plan at this time. Danger To: Self Gravely Disabled: N/A Risk Factors: High Anxiety/Distress, SA/MH Hospitalization(s) Lethality Ratin - Conclusion and Recommendations for treatment - and discharge planning Summary: The patient presents as depressed, anxious, feeling helpless, feeling hopeless, and has had new onset of suicidal thoughts. The patient states her appetite has been decreased, with a 40lb weight loss. She has also been having sleep disturbances, low energy and "feeling weak". She is motivated for treatment and would like to be admitted to the inpatient psychiatric unit. Case discussed wtih Dr. Juan and she finds the patient to be a risk to herself at this time and will admit her to [facility].
--- NOTE | 2016-08-13 19:05 | NUR ---
PT REPORTS COMPLETE RELIEF OF NAUSEA.
--- NOTE | 2016-08-13 19:18 | NUR ---
PT EATING BOXED LUNCH
--- NOTE | 2016-08-13 21:14 | NUR ---
CALLED CPS TO GIVE REPORT ON PT. SPOKE TO RAMSEY WHO SAID THEY ARE NOT READY, STILL ADMITTING LAST PT. RAMSEY WILL CALL ED MICHA
--- NOTE | 2016-08-13 22:18 | NUR ---
PT ADMITTED TO [facility], ORAL REPORT GIVEN TO RAMSEY DASH ALL V.S.S. CLINICAL STATUS UNCHANGED. PT READY FOR TRANSFER
[2016-08-13 22:51] VITALS: BP 115/74
[2016-08-14 08:02] VITALS: BP 123/87
[2016-08-14 12:11] VITALS: BP 139/78
--- NOTE | 2016-08-14 12:53 | NUR ---
PT VISIBLE IN THE [facility] TODAY. HER GOAL WAS TO TALK TO THE DOCTOR ABOUT MEDICATION CHANGES. SHE HAS BEEN GOING TO [facility], AND INTERACTING APPROPRIATELY WITH PEERS AND STAFF. IN THE [facility] PT HAS BEEN CAlM AND COOPERATIVE, SHE DENIES THOUGHTS OF HURTING HERSELF WHEN ASKED.
--- NOTE | 2016-08-14 15:14 | CPS MD/APRN INITIAL ASSE PSYCH ---
Psychiatric Admission Vacuum Kettle Cook's Note Reviewed: Yes Patient Seen and Examined: Yes Identifying Information: middle aged woman Chief Complaint: depression Reaction to Hospitalization: amenable History of Present Illness Onset of Illness: two months ago (worsening) Circumstances Leading to Admission: overwhelmed with depressive thoughts Problem(s) Justifying Need for Admission: depression and SI Other HPI: 61 year old woman with a history of depressive sx, suicidal thoughts, who was admitted for worsenign depression. She stated that she has been worse over the last two months since she was admittted medically for cardiac stent. She has lost 40lbs, has poor appetite; her sleep is good. She c/o panic sx, depression, generalized anxiety sx. She stated that she was nauseated w/ trintellix and she does not want to continue the medication. She stated that she was doing rather well until the medical complications a few months ago. She was pleasant, anxious appearing and help seeking. Stated that past meds included prozac, paxil, wellbutrin, ambien, remeron. Was uanble to recall others and whether they had any fx on her. Stated that she has to be strong for her grandchildren, who are 18 and 22, and that she wants to get better before she goes on vacation in a month. Stated that she was [facility] to [facility] 10 [facility] for depressive symptoms. No suicide attempts in her life. No psychotic sx evident. Past Psychiatric History Past Diagnosis(es)- if any: mdd, bipolar d/o per her Past Precipitating Factors- if any: medical problems - Include inpatient and outpatient treatment Treatment History: has been in outpatient tx w/ Dr. Gambino, also in inpatient 2004. No suicide attempts History of Suicide Attempts or Gestures none Substance Abuse History: none Allergies: Coded Allergies: NO KNOWN ALLERGIES (09/14/10) Home Med List: see med rec - Include any medical condition(s) that may - impact the patient's recovery/remission Past Medical History: s/p recent stent Past History Medical History Neurological: NONE EENT: NONE Cardiovascular: CAD, hypertension, hyperlipidemia, STENTS 1995 Respiratory: NONE Gastrointestinal: NONE Hepatic: NONE Renal: NONE Musculoskeletal: NONE Psychiatric: anxiety, depression Endocrine: NONE Blood Disorders: NONE Cancer(s): NONE 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: 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 History of MRSA: Yes History of VRE: Yes History of CDIFF: Yes Isolation History: Standard Surgical History Surgical History: CARDIAC STENTS Psychiatric Family/Social Hx Family History Psychiatric Illness: father and grandmother with depression Substance Use: none Suicides: none Social History Living Situation: lives with Significant Relationships (family/friends): , grandchildren Education: did not ask level of education - 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 - #1 Recognizing dangerous situations. - #2 Coping Skills. - #3 Basic information about quitting. Status of Tobacco Cessation Counseling: Not Applicable Cessation Med Status Not Applicable Alcohol Screening - ETOH screen POS if BAL >=80 or Audit-C>= M4/F3 Audit-C Score from Diag Assess: 0 Blood Alcohol Level: Laboratory Tests 08/13 1405 Toxicology Serum Alcohol (<10 MG/DL) < 10.0 Alcohol Use Screening Results: Neg per Audit C &/or BAL - If ETOH counseling indicated - the following topics are required. - #1 Express concern about the patient's - drinking at unhealthy levels, include informing - of national norms for moderate drinking: - men <= 14 drinks/week, max 4 drinks/occasion - women <= 7 drinks/week, max 3 drinks/occasion - #2 Providing feedback, including linking alcohol to - negative physical effects (liver injury, hypertension) - negative emotional effects (relationship problems and - depression) - negative occupational consequences (reduced work - performance) - #3 Advising the patient to abstain from alcohol or - to drink below national norms for moderate drinking - (as listed above). Status of ETOH Use Counseling: N/A B/C NO ETOH Use Metabolic Screening - Screen if on a Neuroleptic Medication - Metabolic screening should include: - Blood Pressure, BMI, Glucose or Hgb A1c, & a - Lipid profile from within the past 365 days. Metabolic Screening () Not Applicable, patient not on a neuroleptic. OR () Patient on a neuroleptic(s) . Enter below results for Glucose or Hemoglobin A1C, and lipid panel if obtained during the last 365 days. BMI: 24.000 Blood Pressure: 139/78 Laboratory Results (If applicable): Exam and Plan Mental Status Examination Ambulation Status: intact Appearance: well groomed Attitude towards examiner: pleasant Psychomotor activity: normal Behavior: anxious at times Quality of speech: coherent Affect: broad Mood: good Suicidal Ideation: stated that she has intermittent SI but not recently, no active plans or passive plans Homicidal Ideation: none Hallucinations: none Paranoid/Delusional Material: none Difficulties with thought organization: none Insight: good Judgment: good Orientation: to person, place situation Cognition: intact Memory Function: intact grossly as evidenced by ability to recall personal hx Estimate of intellectual functioning: average to above Assets/Strengths Patient Identified Assets/Strengths: family support, good insight Impression/Plan Impression and Plan: 61 year old woman with a history of depressive sx, suicidal thoughts, who was admitted for worsening depression since cardiac stent several months ago. She has weight loss, poor energy, poor appetite. She is agreeable to start lexapro for depressive and anxiety sx. She has been on ritalin for ADHD type sx for several years per her. - Include all active medical diagnosis that require tx DSM 5 Diagnosis(es): unspecified depressive d/o - Initial Tx Plan for Active Psych & Medical Conditions Treatment Plan: start lexapro, discussed risks, benefits, alternatives, gave her patient handoout on med; group therapy, family meeting - Factors that would help patient function - in a less restrictive setting. Factors: risk: harm to self/others chronically elevated due to hx of depression, but overall risk is low as she is help seeking, involved in tx, not psychotic, no suicide attempts
[2016-08-14 15:25] VITALS: BP 136/67
--- NOTE | 2016-08-14 18:46 | History & Physical ---
General Information and HPI MD Statement: I have seen and personally examined ELIZABETH CLARKE and documented this H&P. The patient is a 61 year old F who presented with a patient stated chief complaint of increased anxiety and depression with suicidal ideation. Source of Information: patient, old records Exam Limitations: no limitations History of Present Illness: The patient is a 61 yo female with h/o CAD (s/p cath and stents 2 months ago), HTN, HL, DM2, anxiety and depression who presented in the ED at [place] after being sent by her psychiatrist with increased depression/anxiety with some suicidal ideation. She states symptoms began getting worse after her catheterization. She has also had a 40 lb weight loss due to diminished appetite. She denies any dyspnea, chest pain, fever, abdominal pain, nausea, vomiting. Allergies/Medications Allergies: Coded Allergies: NO KNOWN ALLERGIES (09/14/10) Home Med list Amlodipine Besylate 2.5 MG TABLET 1 TAB PO DAILY HIGH BLOOD PRESSURE ( Reported) Aspirin (Aspirin*) 81 MG TAB.CHEW 1 TAB PO DAILY HEART HEALTH (Reported) Bismuth Subsalicylate (Kaopectate) 262 MG/15 ML ORAL.SUSP 30 ML PO DAILY NEEDED HEARTBURN (Reported) Clonazepam 1 MG TABLET 1 TAB PO Q6-PRN PRN ANXIETY (Reported) Clopidogrel Bisulfate (Clopidogrel) 75 MG TABLET 1 TAB PO DAILY HEART HEALTH (Reported) Docusate Sodium (Colace) 100 MG CAPSULE 1 CAP PO DAILY NEEDED CONSTIPATION (Reported) Fluticasone Propionate 50 MCG/ACTUATION SPRAY.SUSP 2 SPRAY NASB DAILY ALLERGIES (Reported) Loratadine (Claritin) 10 MG TABLET 1 TAB PO DAILY ALLERGIES (Reported) Metformin HCl 500 MG TABLET 2 TAB PO D DIABETES (Reported) Methylphenidate HCl 20 MG TABLET 1 TAB PO BID UNKNOWN (Reported) Metoprolol Succinate 25 MG TAB 0.5 TAB PO QPM HEART (Reported) Montelukast Sodium 10 MG TABLET 1 TAB PO QPM ALLERGIES (Reported) Nitroglycerin 0.4 MG TAB.SUBL 1 TAB SL AD CHEST PAIN (Reported) 1st sign of attack; may repeat every 5 minutes until relief; if pain persists after 3 tablets in 15 minutes, prompt medical att Ranolazine (Ranexa) 500 MG TAB.ER.12H 1 TAB PO BID CHEST PAIN (Reported) Rosuvastatin Calcium (Crestor) 40 MG TABLET 1 TAB PO DAILY HIGH CHOLESTROL ( Reported) Sitagliptin Phosphate (Januvia) 100 MG TABLET 1 TAB PO QPM DIABETES (Reported ) Vortioxetine Hydrobromide (Trintellix) 5 MG TABLET 1 TAB PO D DEPRESSION ( Reported) PT TO GO UP TO 10 MG ON Tuesday08/17/16 Compliance With Home Meds: GOOD Past History Travel History Traveled to [place] past 21 day No Medical History Neurological: NONE EENT: NONE Cardiovascular: NONE (S/P STENTS 2 MOS AGO), CAD, hypertension, hyperlipidemia, STENTS 1995 Respiratory: NONE Gastrointestinal: NONE Hepatic: NONE Renal: NONE Musculoskeletal: NONE Psychiatric: anxiety, depression Endocrine: NONE Blood Disorders: NONE Cancer(s): NONE 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 MOTHER (DM2). 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 Review of Systems Review of Systems Constitutional: Reports: no symptoms (40 LB WEIGHT LOSS- ANOREXIA), unexplained weight loss. EENTM: Denies: no symptoms. Cardiovascular: Denies: no symptoms. Respiratory: Denies: no symptoms. GI: Denies: no symptoms. Genitourinary: Denies: no symptoms. Musculoskeletal: Denies: no symptoms. Skin: Denies: no symptoms. Neurological/Psychological: Denies: no symptoms. Hematologic/Endocrine: Denies: no symptoms. Immunologic/Allergic: Denies: no symptoms. Post Menopausal: Yes Exam & Diagnostic Data Last 24 Hrs of Vital Signs/I&O Vital Signs Date Time Temp Pulse Resp B/P B/P Pulse O2 O2 Flow FiO2 Mean Ox Delivery Rate 08/16 1233 76 123/64 08/16 0842 96.6 87 17 11275 08/16 0842 96.6 87 112/75 08/16 0800 96.6 87 112/75 08/15 2151 90 134/66 08/150 90 134/66 08/16 2011 96.7 134/66 Physical Exam General Appearance Alert, Oriented X3, Cooperative, No Acute Distress Skin No Rashes, No Breakdown, No Significant Lesion HEENT Atraumatic, PERRLA, EOMI, Mucous Membr. moist/pink Neck Supple, No JVD, No thryomegaly, +2 Carotid Pulse wo Bruit, No LAD Cardiovascular Regular Rate, Normal S1, Normal S2, No Murmurs Lungs Clear to Auscultation, Normal Air Movement Abdomen Normal Bowel Sounds, Soft, No Tenderness, No Hepatospenomegaly, No Masses Neurological Exam Findings: Normal Gait, Normal Speech, Strength at 5/5 X4 Ext, Normal Tone, Sensation Intact, Cranial Nerves 3-12 NL, Reflexes 2+ Cranial Nerves II through XII: INTACT Extremities No Clubbing, No Cyanosis, No Edema, Normal Pulses, No Tenderness/ Swelling Vascular Normal Pulses, Pulses Symmetrical Assessment/Plan Assessment: Impression/Plan: #Depression/Anxiety- increasing severity with some suicidal ideation. Sent in by OP psychiatrist. Has had 40 lb weight loss. Precipitated after cardiac cath and stent placement approximately 2 months ago. Plan: Admit to [facility]/Psychiatry. Meds as per Psych. #CAD- s/p stents as above. No cardiac complaints at present. Plan: Continue Metoprolol, ASA, Plavix, Crestor... #HTN- BP good. Plan: Continue Amlodipine & Metoprolol. #HL- on statin. Plan: Continue Crestor (or Atorvastatin). #DM2- has been stable. Plan: Continue Metformin/Sitagliptin. #Allergic Rhinitis- on meds. Plan: Continue Loratadine, Montelukast. As Ranked By This Provider Problem List: 1. Essential hypertension 2. Coronary arteriosclerosis 3. Depression 4. Anxiety 5. Hyperlipidemia 6. DM2 (diabetes mellitus, type 2) Miscellaneous Miscellaneous Documentation Attending Case Discussed With: JENNIFER GUTIERREZ,CORONA Kaur Primary Care Physician: GRAZYNA DENNIS Patient sees these Specialists CARDIOLOGY Level of Patient Care: [facility] Consults Needed: Consulting Physician: NONE Attending MD Review Statement Attending Statement Attending Assessment/Plan: SEE ABOVE
[2016-08-14 20:38] VITALS: BP 150/62
--- NOTE | 2016-08-14 21:47 | NUR ---
PT IS VISIBLE ON UNIT, SOCIAL WITH PEERS AND WATCHING TV IN LOUNGE. PLEASANT AND COOPERATIVE WITH STAFF. WENT TO BED RIGHT AFTER 1999 VITAL SIGNS WHICH MADE HER ABSENT FROM WRAP UP. NO SI REPORTED. PT HAS A STABLE MOOD AND FULL RANGE AFFECT.
--- NOTE | 2016-08-15 00:24 | NUR ---
PATIENT CURRENTLY RESTING QUIETLY, BLOOD PRESSURE/PULSE WNL; EARLIER IN EVENING SHE WAS COMPLAINING OF MILD CHEST PAIN WHICH SEEMED MORE LIKE A MUSCLE ACHE; HER VITAL SIGNS WERE STABLE AT THAT TIME; A PRECAUTION, DR. CHENEY ORDERED AN EKG AND TROPONIN LEVEL; DR. CHENEY VIEWED THE EKG AND RULED OUT EMERGENT ACTIVITY; THE EKG HAD TO BE REPEATED DUE TO EXCESSIVE ARTIFACT THE FIRST TIME; THE TROPNIN LEVEL AT 2130 WAS NEGATIVE; TROPONIN TO BE RECHECKED AT 0300 AND A REPEAT EKG WILL BE DONE AT 0100.
--- NOTE | 2016-08-15 04:35 | Event Note ---
Event Note Event Note: I was called for patient complaining of chest pain When I went to examine her, she complained for soreness on left side in the bone , nonradiating, no shoulder pain, pain eased with nitro. NO palpitation. Vitals and Examination unremarkable. # given her Hx CAD : obtained EKG : negative ; Troponin negative
--- NOTE | 2016-08-15 06:03 | NUR ---
PATIENT SLEPT MOST OF NIGHT IN BETWEEN THE EKD AND TROPONIN BLOOD DRAWS; 0245 EKG AND TROPONIN WERE BOTH WNL; PER DR. WHITTINGTON MYOCARDIAL INFARCTION RULED OUT.
[2016-08-15 07:54] VITALS: BP 119/64
--- NOTE | 2016-08-15 11:40 | CP SOUTH PROGRESS NOTE PSYCH ---
Psych (Inpt) Progress Note Progress Note Include the following elements, when applicable: Involvement in the active treatment of the patient with behavioral observations of the patient and the patient's response to the treatment. Review of the ongoing treatment process in the context of the treatment plan. Indication of how multi-disciplinary staff members are carrying out the treatment plan. Plans for future interventions and recommendations for revision of the treatment plan. Liaison with other physicians/providers. Progress Note: She had complained of chest pain last night, she stated that it was muscle pain rather than actual chest pain, that she wanted bengay for it. Her EKG was done, reviewed by money room teller, and two troponins were negative. She has been doing well, anxious to have her meds work quickly, stating that she wants her boost of energy in the morning. No other issues. MSE: middle aged woman, no psychomotor changes noted, no tics or tremors noted. Anxious appearing but overall no psychomotor changes. Well groomed and good hygiene. She is well related. Mood is euthymic, affect is full. Speech is regular rate and rhythm. No evidence of thoughts to harm self/others. Thought process is linear and logical. Insight is good. Judgment is good. A: 61 year old woman with a history of depressive sx, suicidal thoughts, who was admitted for worsening depression, with panic sx, depressed mood, poor appetite with weight loss. Plan: Educated her regarding time for antidressants to take effect; Increase lexapro to 20mg daily. Continue current plan of care.
[2016-08-15 12:13] VITALS: BP 120/73
--- NOTE | 2016-08-15 12:14 | NUR ---
PT IS PRESENT THE MILIEU AND APPROPRIATE WITH PEERS AND STAFF, ACTIVELY ENGAGED AND INVOLVED IN TREATMENT AND APPEARS MOTIVATED FOR MENTAL HEALTH ASSISTANCE, MOOD IS STABLE WITH FULL RANGE AFFECT. NO ISSUES OR COMPLAINTS REPORTED OR OBSERVED, CALM, PLEASANT, COOPERATIVE, RESPECTFUL, ATTENDING ALL GROUPS WHERE SHE DEMONSTRATED + PARTICIPATION/GOALS FOR THE DAY.
[2016-08-15 15:52] VITALS: BP 130/75
[2016-08-15 20:12] VITALS: BP 134/66
--- NOTE | 2016-08-15 22:56 | NUR ---
PT HAS BEEN SOCIAL AND SITS IN THE MILEU WITH PEERS. SHE APPEARS TO HAVE A FULL RANGE AFFECT AND OFFERS FEEDBACK TO PEERS. SHE REPORTED TO THE RN FEELINGS OF ANXIETY AND WENT TO BED EARLY. PT DENIES ANY THOUGHTS OF SI WHEN ASKED.
--- NOTE | 2016-08-16 05:32 | NUR ---
PT SLEPT AFTER KLONOPIN PRN AT 1999. DR PANTOJA HAD STATED IN HER NOTE THAT WOULD INCREASE THE LEXAPRO DOSE TO 20MG, BUT THIS WAS NOT DONE.
[2016-08-16 08:00] VITALS: BP 112/75
[2016-08-16 12:33] VITALS: BP 123/64
--- NOTE | 2016-08-16 14:17 | NUR ---
PT IS LOUD AT TIMES AND TENDS TO TALK OVER HER PEERS. SHE IS COMPLIANT WITH HER MED REGIME AND IS ATTENDING GROUPS. WHEN ASKED SHE DENIED ANY THOUGHTS OF SUICIDE OR SELF HARM
--- NOTE | 2016-08-16 16:18 | SOCIAL WORKER PROG NOTE PSYCH ---
See Addendum Social Work Progress Note Progress Note Yuko, Dr. Mcclure and I met together. She shared that her depression got worse after she had 2 stents put in. She spoke about how her anxiety has been unmanagable for her. Reports having panic attacks where her she has a tightness in chest and difficulty breathing. Reports [address] Mcclure reviewed a hx of medications that she has been on in the past. He thinks starting Wellbutrin will be good, as it will be activating enough for her. She was concerned about fatigue. He will also keep her on the Lexapro due to her panic symptoms. She has Klonopin that she has been taking, but states somtimes it helps and sometimes it doesn't. Dr. Mcclure will keep a standing 1mg dose at night and put 0.5mg 2x's Q6 PRN in case she needs it. Yuko doesn't remember ever trying a mood stabilizer. Dr. Mcclure thought it would be good for her to start Tegretol. She had some difficulty remembering the med changes and requested that they would be written down. I wrote down the names of the meds after we met and handed them to her. Yuko signed a release for her outpatient psychiatrist Daly Gambino [phone]. She has been seeing her for [address] Mcclure will most likely follow up and give her a call. Yuko is open to having a family meeting with her . Attempted to reach him today by phone, but didn't get through.
--- NOTE | 2016-08-16 16:18 | SOCIAL WORKER TX PLAN PSYCH ---
Treatment Plan - Please Document: - Evidence that there is ongoing collaboration between - the patient and the interdisciplinary team, - including the patient's active participation and - responsibility for engaging in the treatment regimen, - and that the treatment plan is individualized and - relevant to the patient's conditions. - Treatment plan should reflect documentation indicating - that all active therapeutic efforts are included. Strengths/Capabilities: The patient has a supportive and stable living enviornement. Physical Limitations (Interventions): None noted Patient Identified Trmt Goals: "I need to help my anxiety" Discharge Plan: [facility] Problem/Goals #1 Problem #1: anxiety Goal (Short Term): patient will explore medication changes to assist with decreasing anxiety and mood stabilization. Goal (Senior Living): Patient will have diminished panic symptoms and feel comforatable for discharge Interventions: patient will be offered medication management with the psychiatrist, groups on symptom management, coping skill group, goals group, focus group, relaxation skills, art therapy. Wealth Management Director will help patient identify ways to distract and cope with anxiety. Wealth Management Director will hold a family meeting and assist with aftercare planning. DSM5/PS Stressors/Medical Prob Diagnosis' (DSM 5, Stressors, Medical): F31.9 Unspecified Bipolar Disorder F41.9 Unspecified Anxiety Disorder Medical: Recent cardiac stents placed Stressors: Medical issues Current GAF: 25 Treatment Team - Responsibilities of members of the treatment team include: - Medication Management- MD or CAN MAKER - Medication Administration and Monitoring- Nurse - Group Therapy- Occupational Therapist - 1:1 Therapy,Disch Planning,family involvement-Wealth Management Director
[2016-08-16 16:35] VITALS: BP 131/64
--- NOTE | 2016-08-16 17:25 | CP SOUTH PROGRESS NOTE PSYCH ---
Psych (Inpt) Progress Note Progress Note Include the following elements, when applicable: Involvement in the active treatment of the patient with behavioral observations of the patient and the patient's response to the treatment. Review of the ongoing treatment process in the context of the treatment plan. Indication of how multi-disciplinary staff members are carrying out the treatment plan. Plans for future interventions and recommendations for revision of the treatment plan. Liaison with other physicians/providers. Progress Note: PSYCHIATRIST NOTE, 08/16/2016: I discussed this patient's presentation and progress to date, treatment and discharge planning with staff team today in the daily morning CHELSI and Alexia Falcon LCSW, our medical student, Elliott, and I met together with her in individual session. Patient was pleasant but pressured, fast-talking, looking, acting, and describing being "anxious, hyper." She gave a history of bipolar disorder which was completely confirmed by her discharge summary from [facility] in 2004; she had been admitted in a florid though fortunately relatively brief delirium most likely related to serious overprescription of Lexapro (to 40mg/day!), combined with severe benzodiazepine and opioid intoxications; at that time, patient was prescribed [place] carbonate; unfortunately, at this time patient is a rather limited historian and cannot recall precisely how she did on [place] but also denies ever having any limiting side effects from its use. Currently, patient is on no primary mood stabilizer. What she IS on are amphetamine and benzodiazepine drugs which are not helping to manage/stabilize her moods but may actually be driving surging into hypomania; both need to be cut back, if not held completely. Since patient does claim some benefit in the past from her methylphenidate and has never had a trial on Wellbutrin before, it might make sense to add the latter while tapering away the former during this admission. Given patient's age and horror of anything that might be associated with significant weight gain the best first mood stabilizer to add might be Tegretol; Lamictal is not usually associated with weight gain/is weight neutrol the time frame for achieving an effective dose is 2-3 months, she needs relief sooner, not later, and Lamictal is more effective in prophylaxis of bipolar depression than treating the hypomanic pole of the disorder. Following discussion of R/B/ SE patient agreed to start a trial of carbamazepine, 200mg today, increasing to 400mg/day tomorrow and obtaining a serum level in AM 08/19/2016. 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
--- NOTE | 2016-08-16 19:25 | NUR ---
PT IS CALM, COOPERATIVE WITH STAFF AND PEERS, AND COMPLIANT WITH UNIT RULES. OFTEN IN MILIEU, INTERACTING WELL WITH OTHERS. MOOD IS STABLE, AFFECT APPEARS EUTHYMIC TO FULL RANGE, COMMUNICATION IS ORGANIZED AND APPEARS NORMAL IN ALL RESPECTS, AND APPETITE IS NORMAL. PT DENIES SI AT THIS TIME.
[2016-08-16 20:04] VITALS: BP 112/64
[2016-08-17 08:13] VITALS: BP 128/72
--- NOTE | 2016-08-17 10:38 | SOCIAL WORKER PROG NOTE PSYCH ---
See Addendum Social Work Progress Note Progress Note Called Yuko's Adelfo and scheduled a family meeting for tomorrow at 11am. Met with Yuko, who continues to present as a little anxious and pressured. She is still slightly confused about what her medications are being prescribed for. I reviewed the information we discussed yesterday with Dr. Mcclure and encouraged her to start a list of questions for when she sees the doctor today. She reports no panic attacks today and says she is feeling good. She was not experiencing panic attacks prior to her surgery, so this intensity is new for her. We talked about things to help such as excercise, talking to people ect.. She has a pool that she wants to get in. She talked about a vacation planned at [place] for 09/05 with her family for a few days. Talked about going to [facility] as a discharge plan. Initially Yuko refused, stating she would prefer not to. I talked with her about the benefits of going, even if it was til her vacation on 09/05. She took some information down about it and said she would be open to hearing more about it from the IOP Coordinator. She does seem to be looking for additional support, she was asking about a home health aid for a few days at home. She seems to like the idea of having "someone to talk to." She doesn't want to burden her . I also brought up the idea of an individual therapist, but she refused. She will consider the IOP on a short term temporary basis. Left Akanksha Lala TREE TRIMMER a message to see if she can come by the unit to see her.
[2016-08-17 12:29] VITALS: BP 122/78
--- NOTE | 2016-08-17 13:47 | NUR ---
PT IS COMPLIANT AND COOPERATIVE. MOOD IS STABLE WITH A CONSTRICTED AFFECT. PT DENIES SI AT THIS TIME, NO COMPLAINTS OFFERED. PT IS PRESENT ON THE UNIT AND INTERACTING WELL WITH PEERS AND STAFF. PT HAS ATTENDED MOST GROUPS. VITALS ARE STABLE, APPETITE IS GOOD.
--- NOTE | 2016-08-17 13:48 | NUR ---
ABNORMAL EKG SEEN BY DR KRISHNAN. NO NEW ORDERS AT THIS TIME
--- NOTE | 2016-08-17 14:10 | NUR ---
PT VISIBLE IN THE MILIEU TODAY. HER GOAL WAS TO WORK ON DISCHARGE PLANS. PT WAS IN A FEW OF THE GROUPS TODAY, AND HAS BEEN INTERACTING POSITIVELY WITH PEERS. PT IS COOPERATIVE WITH STAFF DIRECTION AND DENIES THOUGHTS TO HURT HERSELF WHEN ASKED.
--- NOTE | 2016-08-17 17:48 | NUR ---
PT IS CALM, COOPERATIVE WITH STAFF AND PEERS, AND COMPLIANT WITH UNIT RULES. BOTH IN AND OUT OF MILIEU, PT IS SPENDING PERIODS OF TIME RESTING IN PT ROOM. WHEN ENTERING MILIEU, PT DOES INTERACT WELL WITH OTHERS. MOOD IS STABLE, AFFECT APPEARS EUTHYMIC TO FULL RANGE, COMMUNICATION IS ORGANIZED AND APPEARS NORMAL IN ALL RESPECTS, AND APPETITE IS NORMAL. PT DENIES SI AT THIS TIME.
--- NOTE | 2016-08-17 19:01 | CP SOUTH PROGRESS NOTE PSYCH ---
Psych (Inpt) Progress Note Progress Note Include the following elements, when applicable: Involvement in the active treatment of the patient with behavioral observations of the patient and the patient's response to the treatment. Review of the ongoing treatment process in the context of the treatment plan. Indication of how multi-disciplinary staff members are carrying out the treatment plan. Plans for future interventions and recommendations for revision of the treatment plan. Liaison with other physicians/providers. Progress Note: PSYCHIATRIST NOTE, 08/17/2016: I discussed this patient's progress to date, current mental status, treatment and discharge planning with staff team today in the daily morning ITTM and also met with patient again in individual session. Patient experiencing possible side effects (nausea) with Tegretol titration to 400mg/day; I may have increased dose too quickly (from 200mg to 400mg/day in a single day); she is currently scheduled for initial carbamazepine level in am 08/19/2016. I am holding off on any upward dose titration of Lexapro or Wellbutrin pending therapeutic carbamazepine concentration and need to lower Tegretol dose, at least temporarily, until nausea resolves. Patient's mood is improving slowly but somewhat unevenly to date. She is willing to start tapering away outpatient ampehetamine (currently onmethylphenidate). Patient is experiencing less problem with "near" panic attacks or at least less apprehension about having one. She is resistant to taking on an individual therapist on an outpatient basis but possibly amenable to transitioning through IOP.
[2016-08-17 20:02] VITALS: BP 124/70
--- NOTE | 2016-08-18 00:31 | Cons- Endocrinology ---
General Information and HPI Consulting Request Date of Consult: 08/17/16 Requested By: Sameer Reason for Consult: management of DM type 2 Source of Information: patient Exam Limitations: no limitations History of Present Illness: 61 yo female with h/o CAD (s/p cath and stents 2 months ago), HTN, HL, DM2, anxiety and depression who presented in the ED at [facility] after being sent by her psychiatrist with increased depression/anxiety with some suicidal ideation. She states symptoms began getting worse after her catheterization. She has also had a 40 lb weight loss due to diminished appetite. She denies any dyspnea, chest pain, fever, abdominal pain, nausea, vomiting. With regards to DM, she was on metformin 500 mg twice a day amd Januvia 100 mg daily. In hospital, she was put on metfomrin 1000 mg daily at bedtime and Januvia 100 mg daily at bedtime. Her FSG in the morning was 111. Allergies/Medications Allergies: Coded Allergies: NO KNOWN ALLERGIES (09/14/10) Home Med List: Amlodipine Besylate 2.5 MG TABLET 1 TAB PO DAILY HIGH BLOOD PRESSURE ( Reported) Aspirin (Aspirin*) 81 MG TAB.CHEW 1 TAB PO DAILY HEART HEALTH (Reported) Bismuth Subsalicylate (Kaopectate) 262 MG/15 ML ORAL.SUSP 30 ML PO DAILY NEEDED HEARTBURN (Reported) Clonazepam 1 MG TABLET 1 TAB PO Q6-PRN PRN ANXIETY (Reported) Clopidogrel Bisulfate (Clopidogrel) 75 MG TABLET 1 TAB PO DAILY HEART HEALTH (Reported) Docusate Sodium (Colace) 100 MG CAPSULE 1 CAP PO DAILY NEEDED CONSTIPATION (Reported) Fluticasone Propionate 50 MCG/ACTUATION SPRAY.SUSP 2 SPRAY NASB DAILY ALLERGIES (Reported) Loratadine (Claritin) 10 MG TABLET 1 TAB PO DAILY ALLERGIES (Reported) Metformin HCl 500 MG TABLET 2 TAB PO D DIABETES (Reported) Methylphenidate HCl 20 MG TABLET 1 TAB PO BID UNKNOWN (Reported) Metoprolol Succinate 25 MG TAB 0.5 TAB PO QPM HEART (Reported) Montelukast Sodium 10 MG TABLET 1 TAB PO QPM ALLERGIES (Reported) Nitroglycerin 0.4 MG TAB.SUBL 1 TAB SL AD CHEST PAIN (Reported) 1st sign of attack; may repeat every 5 minutes until relief; if pain persists after 3 tablets in 15 minutes, prompt medical att Ranolazine (Ranexa) 500 MG TAB.ER.12H 1 TAB PO BID CHEST PAIN (Reported) Rosuvastatin Calcium (Crestor) 40 MG TABLET 1 TAB PO DAILY HIGH CHOLESTROL ( Reported) Sitagliptin Phosphate (Januvia) 100 MG TABLET 1 TAB PO QPM DIABETES (Reported ) Vortioxetine Hydrobromide (Trintellix) 5 MG TABLET 1 TAB PO D DEPRESSION ( Reported) PT TO GO UP TO 10 MG ON Tuesday08/17/16 Review of Systems Review of Systems Constitutional: Reports: see HPI, unexplained weight loss. Cardiovascular: Denies: chest pain. Respiratory: Reports: no symptoms. GI: Reports: no symptoms. Hematologic/Endocrine: Denies: polyuria, polydipsia. Past History Travel History Traveled to [place] past 21 day No Medical History Neurological: NONE EENT: NONE Cardiovascular: NONE (S/P STENTS 2 MOS AGO), CAD, hypertension, hyperlipidemia, STENTS 1995 Respiratory: NONE Gastrointestinal: NONE Hepatic: NONE Renal: NONE Musculoskeletal: NONE Psychiatric: anxiety, depression Endocrine: NONE Blood Disorders: NONE Cancer(s): NONE DOOR FRAMER/Reproductive: NONE Surgical History Surgical History: non-contributory Family History Relations & Conditions If Any: FATHER (CAD, HTN). MOTHER (DM2). 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 Exam & Diagnostic Data Last 24 Hrs of Vital Signs/I&O Vital Signs Date Time Temp Pulse Resp B/P B/P Pulse O2 O2 Flow FiO2 Mean Ox Delivery Rate 08/17 2240 124/70 08/17 2001 98.0 76 12470 08/17 1229 84 122/78 08/17 0826 98.0 76 17 128/72 08/17 0826 98.0 76 17 128/72 08/17 0813 98.0 76 Physical Exam General Appearance: no apparent distress Neck: no thyromegaly Respiratory: no respiratory distress Cardiovascular: regular rate/rhythm Gastrointestinal: non-tender Extremities: no edema Labs/Henry Results: Laboratory Tests 08/15 0250 Chemistry Troponin I (< 0.11 ng/ml) < 0.01 Assessment/Plan Assessment/Plan 61 yo female with h/o CAD (s/p cath and stents 2 months ago), HTN, HL, DM2, anxiety and depression who presented in the ED at [facility] after being sent by her psychiatrist with increased depression/anxiety with some suicidal ideation. She states symptoms began getting worse after her catheterization. She has also had a 40 lb weight loss due to diminished appetite. She denies any dyspnea, chest pain, fever, abdominal pain, nausea, vomiting. Her glucose level has been controlled. However, I have changed metfomrin to 500 mg twice a day with breakfast and with dinner. In addition, Januvia 100 mg daily will be given in the morning. I will recommend continue monitoring her FSGs and checking HbA1c. Consult Acknowledgment - Thank you for your consult request.
[2016-08-18 08:27] VITALS: BP 116/72
--- NOTE | 2016-08-18 11:16 | SOCIAL WORKER PROG NOTE PSYCH ---
Social Work Progress Note Progress Note Yuko approached me and shared that she will go to [facility]. Yuko's came in for a family meeting at 11am today. Dr. Mcclure was in attendance at this meeting as well. Discussed participating in [facility] to see how it goes. She wants to be ready and well for her trip to [place]. Dr. Mcclure spent time talking to Yuko about tapering off Ritalin and that with a Bipolar Disorder she should not be on that type of medication. Yuko seemed to take the information in and didn't put up an argument. She seems to want to do the best thing for her health. Her was also in agreement. She still feels the need at this time to remain on the Klonopin 1mg at night for sleep. uYko has had no panic symptoms today. Complaints of nausea due to some of her medications. Tegretol dose was lowered due to stomach complaints. She ate breakfast today before taking it, so hopefully that helps. Sent an email requesting an intake for Tuesday for [facility].
--- NOTE | 2016-08-18 12:07 | NUR ---
PT HAS BEEN ATTENDING GROUPS AND INTERACTING WITH STAFF AND PEERS IN A CALM AND APPROPRIATE MANNER.SHE HAD A POSITIVE FAMILY MEETING WITH HER TODAY. SHE DENIES SUICIDAL THOUGHTS OR THOUGHTS OF SELF HARM AT THIS TIME
[2016-08-18 12:10] VITALS: BP 101/69
--- NOTE | 2016-08-18 12:20 | CP SOUTH PROGRESS NOTE PSYCH ---
Psych (Inpt) Progress Note Progress Note Include the following elements, when applicable: Involvement in the active treatment of the patient with behavioral observations of the patient and the patient's response to the treatment. Review of the ongoing treatment process in the context of the treatment plan. Indication of how multi-disciplinary staff members are carrying out the treatment plan. Plans for future interventions and recommendations for revision of the treatment plan. Liaison with other physicians/providers. Progress Note: PSYCHIATRIST NOTE (COUPLE'S MEETING), 08/18/2016: I discussed this patient's progress to date, current mental status, treatment and discharge planning with staff team today in the daily morning CHELSI and Alexia Falcon LCSW, and I met with patient and her Adelfo in a couple's session; spouse was appropriately (if somewhat passively) supportive of patient' s welfare, safety and recovery from current episode of illness. They have been together a long time and he has seen her through some rough patches in the past and seems fully committed to her going forward; he is supportive of patient following up in [facility] upon discharge from [facility], feels it will give her a longer "recovery" period (which it will). Spouse is also supportive of patient tapering off the amphetamine therapy as possibly destabilizing her mood disorder. Patient is not comfortable lowering current dose of regular Klonopin below 1mg HS; she currently has PRN's of 0.5mg. Unfortunately, nausea has not resolved with halving of Tegretol dose; if this continues it will likely be necessary to discontinue that mood stabilizer and look for/seek out another.
[2016-08-18 16:07] VITALS: BP 117/72
--- NOTE | 2016-08-18 17:49 | NUR ---
PT REQUESTED THAT JANUVIA 100 MG AND METFORMIN 100MG BE ADMINISTERED TOGETHER IN PM. PER PT. HER IDEAL TIME WOULD BE "AROUND 7:00 PM" REGARDLESS OF DINNER TIME. PT REFUSED BOTH MEDS TODAY AT SCHEDULED TIME. PT EDUCATED ON BEST TIME(S) OF DAY TO TAKE REGULAR METFORMIN (BID WITH MEALS). PT DECLINED. HOWEVER, SHE AGREED TO SPEAK TO HER PCP REGARDING EXTENDED RELEASE FORM IF SHE CONTINUES TO DESIRE 1 X DAY DOSING. PT ALSO AGREED TO HAVE ORDER FOR METFORMIN AND JANUVIA WRITTEN IN HOSPITAL FOR 18OO SO THAT MEDS COULD BE TAKEN CLOSE TO DINNER POSSIBLE/PT WILLING TO TAKE. SPOKE WITH DR DESAI AT 1715, WHO AGREED TO MAKE MEDICATION TIME CHANGES.
--- NOTE | 2016-08-18 18:31 | NUR ---
PT IS CALM, COOPERATIE WITH STAFF AND PEERS, AND COMPLIANT WITH UNTI RULES. BOTH IN AND OUT OF [place], PT IS INTERACTING WELL WITH OTHERS. MOOD IS STABLE, AFFECT APPEARS EUTHYMIC TO FULL RANGE, COMMUNICATION IS ORGANIZED AND APPEARS NORMAL IN ALL RESPECTS, AND APPETITE IS NORMAL. PT DENIES SI AT THIS TIME.
--- NOTE | 2016-08-18 19:55 | NUR ---
PT CONTINUES TO C/O GI UPSET/NAUSEA SHE RELATES TO TEGRETOL. PT OFFERED PEPTO BISMOL. ENCOURAGED TO TAKE TEGRETOL WITH FOOD AND OFFERED TO SPEAK WITH MD REGARDING POSSIBILITY OF ORDERING ANOTHER MEDICATION FOR NAUSEA. PT DECLINED ALL AND REFUSED 2000 TEGRETOL. "I'LL JUST TAKE THE KLONOPIN AND GO BACK TO BED." MUCH OF THIS SHIFT SPENT LAYING IN BED. BEHAVIOR CALM AND COOPERATIVE.
[2016-08-18 19:58] VITALS: BP 143/70
--- NOTE | 2016-08-19 03:31 | NUR ---
slept well up to bathroom.
[2016-08-19 07:46] VITALS: BP 139/68
--- NOTE | 2016-08-19 09:49 | PN- Diabetes ---
Assessment/Plan Assessment: 61 yo female with h/o CAD (s/p cath and stents 2 months ago), HTN, HL, DM2, anxiety and depression who presented in the ED at [facility] after being sent by her psychiatrist with increased depression/anxiety with some suicidal ideation. She states symptoms began getting worse after her catheterization. She has also had a 40 lb weight loss due to diminished appetite. She denies any dyspnea, chest pain, fever, abdominal pain, nausea, vomiting. With regards to DM, she was on metformin 500 mg twice a day amd Januvia 100 mg daily. In hospital, she was put on metfomrin 1000 mg daily at bedtime and Januvia 100 mg daily at bedtime initially. Then I changed them to metformin 500 mg twice a day with meal and Januvia 100 mg daily in the morning. But she has nausea from the antidiabetic medications and requested to take both of them at bedtime. Her FSG was 107 this morning. Plan: I adjusted orders as per patient's request. Subjective Subjective: Her glucose level has been stable. Objective Last 24 Hrs of Vital Signs/I&O Vital Signs Date Time Temp Pulse Resp B/P B/P Pulse O2 O2 Flow FiO2 Mean Ox Delivery Rate 08/19 0843 98.0 82 17 139/68 08/19 0843 98.0 82 17 139/68 08/19 0746 98.0 82 139/68 08/18 2213 83 143/70 08/18 2212 83 143/70 08/18 1958 98.3 83 143/70 08/18 1607 81 117/72 08/18 1210 74 101/69
--- NOTE | 2016-08-19 11:22 | SOCIAL WORKER PROG NOTE PSYCH ---
Social Work Progress Note Progress Note Yuko shared that she is anxious to see Dr. Mcclure today, requesting some med changes. She doesn't want to take the Tegretol and is interested in a new mood stabilizer if possible. She said she feels like her energy is decreasing today and she is scared of going into a depressive state. I let her know that her intake for IOP tomorrow is scheduled for 12:45 and she can have her go with her or pick her up around 1:30pm. We talked about her plans for the weekend. She said she will be going shopping with her Mom. Talked about having something to look forward to daily and setting small goals for herself to accomplish. Encouraged walking, swimming, and getting out of the house. She was very preoccupied with her medication as we talked. I also reminded her that medication is part of her recovery and what she does and works on is the other part.
[2016-08-19 12:17] VITALS: BP 119/73
--- NOTE | 2016-08-19 13:39 | NUR ---
PT IS OVERALL COMPLAINT WITH TREATMENT, DISCUSSING MEDICATIONS WITH PROVIDERS AND SOME CHANGES HAVE BEEN MADE COLLABORATIVELY WITH PT ENGAGED AND INVOLVED, WENT TO PLANNING MEETING TODAY WHERE SHE REPORTED + SLEEP/MOOD AND GOAL WAS TO MEET WITH DOCTOR, COOPERATIVE, CALM, PLEASANT OVERALL.
[2016-08-19 15:53] VITALS: BP 114/63
--- NOTE | 2016-08-19 18:03 | NUR ---
PT IS CALM, COOPERATIVE WITH STAFF AND PEERS, AND COMPLIANT WITH UNIT RULES. OFTEN IN [place], PT IS INETRACTING WELL WITH OTHERS. MOOD IS STABLE, AFFECT APPEARS EUTHYMIC TO FULL RANGE, COMMUNICATION IS ORGANIZED AND APPEARS NORMAL IN ALL RESPECTS, AND APPETITE IS NORMAL. PT DENIES SI AT THIS TIME.
[2016-08-19 19:58] VITALS: BP 132/65
--- NOTE | 2016-08-19 20:48 | CP SOUTH PROGRESS NOTE PSYCH ---
Psych (Inpt) Progress Note Progress Note Include the following elements, when applicable: Involvement in the active treatment of the patient with behavioral observations of the patient and the patient's response to the treatment. Review of the ongoing treatment process in the context of the treatment plan. Indication of how multi-disciplinary staff members are carrying out the treatment plan. Plans for future interventions and recommendations for revision of the treatment plan. Liaison with other physicians/providers. Progress Note: PSYCHIATRIST NOTE, 08/19/2016: I discussed this patient's progress to date, current mental status, treatment and discharge planning with staff team today in the daily morning ITTM and also met with her again myself in individual session. Unfortunately, patient has continued to experience nausea despite the lowering of Tegretol dose to 100mg 2x/day and finally, 100mg daily and refuses to continue the trial. However, she remains interested in starting on a mood stabilizer and asked me about Abilify which she noted having been on in the past with a positive response and no recalled side effects; after further discussion and description of R/B/SE of Abilify, patient agreed to start a retrial on that medication for mood stabilization and augmentation of her anti-depressant therapies (Lexapro and Wellbutrin); I plan to start her on 5mg of Abilify at [facility]. Patient and I spoke some about yesterday's couple's meeting; patient is very positively attached to her partner of many years and very much appreciates his concern for her welfare, safety and happiness. Tapering of the methylphenidate continues without complications/apparent withdrawal symptoms.
[2016-08-20 08:02] VITALS: BP 122/68
--- NOTE | 2016-08-20 10:21 | NUR ---
WILL BE DISCHARGED TODAY TO [facility] WITH FOLLOW UP AT [facility]. MOOD IS STABLE, FULL RANGE OF AFFECT DENIED THOUGHTS OF SELF HARM WHEN ASKED.
--- NOTE | 2016-08-20 11:50 | SOCIAL WORKER PROG NOTE PSYCH ---
Social Work Progress Note Progress Note Met with Yuko who reports doing well today. She reports no panic symptoms and states she is feeling so much better with that. She feels maybe it was the Ritalin. She is pleased to be on Abilify again and stated that he mood is stable today. plans to pick her up after her IOP intake at 12:45 today. Looking forward to getting home. She was disappointed that her granddaughter that works at the hospital never visited her. She thinks she is embarrassed. She plans to talk to her about it. Talked about she feels comfortable going to the IOP knowing she may know other people there. She stated it will be good to get out of the house a few days a week. She was appreciative of her stay her. Wished her well.
[2016-08-20] MEDS ORDERED: LEXAPRO10 M1 PO (12:14)
[2016-08-20] MEDS ORDERED: ABILIFY5 M1 PO (12:14)
[2016-08-20] MEDS ORDERED: WELLBUTRIN SR100 M2 PO (12:14)
[2016-08-20] MEDS ORDERED: KLONOPIN1 M1 PO (12:14)
[2016-08-20 12:37] VITALS: BP 149/74
--- NOTE | 2016-08-20 12:52 | CP SOUTH PROGRESS NOTE PSYCH ---
Psych (Inpt) Progress Note Progress Note Include the following elements, when applicable: Involvement in the active treatment of the patient with behavioral observations of the patient and the patient's response to the treatment. Review of the ongoing treatment process in the context of the treatment plan. Indication of how multi-disciplinary staff members are carrying out the treatment plan. Plans for future interventions and recommendations for revision of the treatment plan. Liaison with other physicians/providers. Progress Note: PSYCHIATRIST NOTE (DISCHARGE), 08/20/2016: I discussed this patient's progress to date, current mental status, treatment and discharge plans with staff team today in the daily morning ITTM and also met with her again myself in individual session prior to discharging her directly to intake at the [facility] for 12:45pm on day of discharge from hospital; she is positive with regard to this referral, reports feeling much better now particularly with regard to her "panic" symptoms which may have actually been contributed to by prescription of Ritalin/Adderall; the prescription of the latter may also have been related to the destabilization of affective/bipolar symptomatology; patient does not plan to return to the use of amphetamines in future. Patient is currently bright in affect and quite cheerful, upbeat, euthymic/even in mood without any evidence of suicidal or homicidal ideation, plans, intent or impulses and well aware of her own safety plan should she ever in future come to believe herself at acute risk of harming herself or others. Patient denies side effects, daytime sedation on current medication regimen. (for details of all medications at the time of discharge, dosages, scheduling, amounts prescribed, indications, see the "Discharge Medications" section of discharge summary from this admission in the electronic medical record)
--- NOTE | 2016-08-20 16:24 | DISCHARGE SUMMARY REPORT-PSYCH ---
Visit Information Visit Dates/Diagnosis' Admission Date: 08/13/16 Discharge Date: 08/20/16 Reason for Admission: " Psy Discharge Primary Diag: Bipolar I Disorder,Mixed with psychotic features; MRE Depressed/Mixed Psy Discharge Secondary Diag: R/O Unspecified Anxiety Disorder with panic sx CAD with hx of stenting (remote AND recent) Hospital Course Course Allergies: Coded Allergies: NO KNOWN ALLERGIES (09/14/10) Hospital Course/TX Response: Initially, patient was pleasant but pressured, fast-talking, looking, acting, and describing being "anxious, hyper." She gave a history of bipolar disorder which was completely confirmed by her discharge summary from [facility] in 2004; she had been admitted in a florid though fortunately relatively brief delirium most likely related to serious overprescription of Lexapro (to 40mg/day !), combined with severe benzodiazepine and opioid intoxications; at that time, patient was prescribed Lynn carbonate; unfortunately, at this time patient is a rather limited historian and cannot recall precisely how she did on Lynn but also denies ever having any limiting side effects from its use. Currently, patient is on no primary mood stabilizer. What she IS on are amphetamine and benzodiazepine drugs which are not helping to manage/stabilize her moods but may actually be driving surging into hypomania; both need to be cut back, if not held completely. Since patient does claim some benefit in the past from her methylphenidate and has never had a trial on Wellbutrin before, it might make sense to add the latter while tapering away the former during this admission. Given patient's age and horror of anything that might be associated with significant weight gain the best first mood stabilizer to add might be Tegretol; Lamictal is not usually associated with weight gain/is weight neutrol the time frame for achieving an effective dose is 2-3 months, she needs relief sooner, not later, and Lamictal is more effective in prophylaxis of bipolar depression than treating the hypomanic pole of the disorder. Following discussion of R/B/ SE patient agreed to start a trial of carbamazepine, 200mg today, increasing to 400mg/day tomorrow and obtaining a serum level in AM 08/19/2016. 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 individual session prior to discharging her directly to intake at the [facility] for 12:45pm on day of discharge from hospital; she is positive with regard to this referral, reports feeling much better now particularly with regard to her "panic" symptoms which may have actually been contributed to by prescription of Ritalin/Adderall; the prescription of the latter may also have been related to the destabilization of affective/bipolar symptomatology; patient does not plan to return to the use of amphetamines in future. Patient is currently bright in affect and quite cheerful, upbeat, euthymic/even in mood without any evidence of suicidal or homicidal ideation, plans, intent or impulses and well aware of her own safety plan should she ever in future come to believe herself at acute risk of harming herself or others. Patient denies side effects, daytime sedation on current medication regimen. Discharge HBIPS - Tobacco Use Treatment Offered - EtOH/Drug Use D/O Treatment Offered Metabolic Screening - Screen if on a Neuroleptic Medication - Metabolic screening should include: - Blood Pressure, BMI, Glucose or Hgb A1c, & a - Lipid profile from within the past 365 days. Discharge Instructions General Discharge Information Discharge Medications: I called into [facility], [place], [place]., on day of discharge, : Wellbutrin SR, 100mg: i tab daily in AM (100mg/day); #14 with no refill (anti -depressant) Lexapro, 10mg: i tab daily in AM (10mg/day); #14 with no refill (anti- depressant) Abilify, 5mg: i tab nightly at HS (5mg/night); #14 with no refill (mood stabilization/bipolar) Klonopin, 1mg: i tab nightly at HS (1mg/night); #14 with no refill (anxiety at bedtime) (patient is well aware of my recommendation that she gradually taper away current dose of Klonopin over course of treatment in the [facility] and that if panic symptoms return to speak with her treaters about upward adjustment in doses of Lexapro--and possibly Abilify) patient told me she had sufficient supplies at home to continue to take: Ranexa, 500mg 2x/day (anti-anginal) Lopressor, 12.5mg/night (control blood pressure) aspirin, 81mg daily (heart health) Singular, 10mg HS (asthma, allergies) Claritin, 10mg daily (asthma, allergies) Flonase, 2 sprays nasally once a daily (allergies) (patient quit smoking completely over 7 years ago and does not drink alcohol)
== END 2016-08-20 12:45 | DRG 885 ==
LOC: ERH 12:58 → ERHI 18:34 → CP SOUTH 18:34 → ENTRNSPT 22:25 → CMPTRNSPT 22:38 → CP SOUTH 22:38 → ENPENDDIS 08-20 14:00
PROVIDERS: Emergency Medicine; ADMIT Psychiatry & Neurology Addiction Medicine
DX: F31.64 Bipolar disorder, current episode mixed, severe, with psychotic features (principal); F41.0 Panic disorder [episodic paroxysmal anxiety]; I25.10 Atherosclerotic heart disease of native coronary artery without angina pectoris
CPT/HCPCS: 36415; 80307; 93005; 93010; 96374; G0480; J0780; J3101; J3490